=== PATIENT | female | born 1960 | race Caucasian/White ===

== ENCOUNTER 2018-06-28 14:03 | Inpatient (IN) ==
[~2018-06-28 14:03] MED LIST: INDOMETHACIN 25 MG CAPSULE PO ONE; NITROGLYCERIN 0.6 MG/HR PATCH TD ONE
[2018-06-28] MEDS ORDERED: IOPAMIDOL 100 ML BOTTLE IV ONE (14:04)
[2018-06-28] MEDS ORDERED: GENTAMICIN SULFATE 80 MG/2 ML VIAL IR ONE (16:00)
[2018-06-28] MEDS: MIDAZOLAM 2 MG/2 ML VIAL IV ONE ×2 (16:02→17:13)
[2018-06-28] MEDS: PROPOFOL 200 MG/20 ML VIAL IV ONE ×2 (16:02→17:13)
[2018-06-28] MEDS ORDERED: ONDANSETRON 4 MG/2 ML VIAL IV PRN (17:11)
[2018-06-28] MEDS: PROPOFOL 40 ML IV ONE ×2 (17:13→17:31)
[2018-06-28] MEDS: PROPOFOL 0 ML IV ONE ×2 (17:13→17:31)
[2018-06-28] MEDS: 0.9 % SODIUM CHLORIDE 1,000 ML IV SCH ×2 (17:15→22:02)
[2018-06-28] MEDS: HYDROmorphone 2 MG/ML VIAL IV PRN ×2 (17:37→22:22)
[2018-06-28] MEDS: diphenhydrAMINE 50 MG/ML VIAL IV PRN ×2 (18:07→22:42)
--- NOTE | 2018-06-29 03:44 | XRay Report ---
CLINICAL INFORMATION: post ERCP COMPARISON: 08/07/2016 FINDINGS: Films taken in lordotic positioning and right rotation with suboptimal inspiratory result accentuates the heart size which is normal. Moderate pneumoperitoneum and mild pneumomediastinum is appreciated with air dissecting into the neck soft tissues. Mild bibasilar airspace noted either atelectasis or developing aspiration. No effusion. IMPRESSION: Moderate pneumoperitoneum with mild pneumomediastinum and subcutaneous emphysema in the neck region. Findings compatible with GI tract perforation. Mild bibasilar airspace disease either atelectasis or minor aspiration Interpreted and Authenticated by: Darian Nielson 06/29/18
[2018-06-29] MEDS ORDERED: LEVOFLOXACIN 500 MG/100 ML BAG IV ONE (03:52)
[2018-06-29] MEDS ORDERED: LEVOFLOXACIN 500 MG/100 ML BAG IV SCH (04:00)
[2018-06-29] MEDS ORDERED: diphenhydrAMINE 50 MG/ML VIAL IV PRN ×2 (04:01→12:22)
[2018-06-29] MEDS: 0.9 % SODIUM CHLORIDE 1,000 ML IV SCH ×2 (05:30→15:47)
[2018-06-29 06:39] LABS: Basophils # (Auto) 0 K/mcL (0.0-0.3); Basophils % (Auto) 0.2 % (0.0-2.0); Eosinophils # (Auto) 0 K/mcL (0.0-0.7); Eosinophils % (Auto) 0.5 % (0.0-7.0); Granulocytes % (Auto) 77.9 % (38.0-78.0); Lymphocytes # (Auto) 1.4 K/mcL (1.5-4.8); Lymphocytes % (Auto) 16.5 % (15.5-49.0); Mean Cell Volume 67.1 fL (80.0-100.0); Mean Corpuscular HGB Conc 31.1 g/dL (31.0-36.0); Monocytes # (Auto) 0.4 K/mcL (0.1-0.9); Monocytes % (Auto) 4.9 % (1.0-12.0); Platelet Count 278 K/mcL (140-440); RBC 4.75 M/mcL (4.00-5.20); Red Cell Distribution Width 15.1 % (11.5-14.5)
[2018-06-29 06:56] LABS: ALT/SGPT 17 U/l (0-40); Albumin 3.5 gm/dL (3.2-5.2); Albumin/Globulin Ratio 1.2 (1.0-2.3); Alkaline Phosphatase 54 U/L (39-117); Amylase 75 U/L (28-100); Blood Urea Nitrogen 9 mg/dl (6-20)
[2018-06-29] MEDS: HYDROmorphone 2 MG/ML VIAL IV PRN ×2 (11:23→12:21)
--- NOTE | 2018-06-29 12:04 | Cat Scan Report ---
CLINICAL INFORMATION: Abdominal pain status post papillotomy biliary pancreatic stent placement COMPARISON: Preprocedure abdomen and pelvic CT 06/10/2018 TECHNIQUE: 80 cc of Isovue-300 were injected intravenously, and 60 seconds later, 0.625 mm helical slices were obtained from the mid heart through the subtrochanteric regions. Following reconstruction, 2.5 mm sagittal, coronal and axial reformatted images were processed and reviewed at bone, lung and soft tissue windows. Five minutes later, 0.625 mm helical slices were obtained from the mid heart through the kidneys and viewed at soft tissue windows.The exam was performed using radiation dose optimization techniques including, but not limited to, automated exposure control, adjustment of the mA and/or kV according to patient size and use of iterative reconstruction technique. FINDINGS: Lung bases show a small left pneumothorax - less than 15%. There is mild pneumomediastinum. Moderate patchy infiltrate in both posterior lower lobes likely represents aspiration. Small bilateral pleural effusions are new. Images through the abdomen show the gallbladder is surgically absent. The liver, adrenal glands, spleen, pancreas and aorta including aortic branches are normal in size configuration and attenuation without focal lesion. Tiny nonobstructing stones in calyces of both kidneys seen as before. No other renal abnormality Common bile duct stent extends from the common hepatic duct through the ampullary region with the tip in the descending duodenum. Pancreatic stent is properly positioned within Wirsungs' pancreatic duct. Both ducts are normal caliber: The common bile duct is now only 5 mm and the pancreatic duct is 2 mm. Small amount of gas within the common bile duct lumen is expected. A large amount of extraperitoneal gas is appreciated with predominant concentration in the retroperitoneal region particularly in the periduodenal region adjacent to the descending and transverse duodenum. The exact site of perforation cannot be identified with certainty, but is likely near the ampullary region. Moderate gas is seen within both anterior pararenal spaces, peripancreatic and extraperitoneal hepatic space with lesser amounts of extraperitoneal gas descending into the false pelvic region. This only a small amount of intraperitoneal gas appreciated Pelvic images show uterus is anteflexed and normal in size 7.8 x 4 cm. Urinary bladder is unremarkable. The region of the ovaries is normal. Bone windows show no osseous abnormality IMPRESSION: 1. Large amount of extraperitoneal gas in the upper abdomen most heavily concentrated in the descending and transverse periduodenal region. Site of perforation is not identified with certainty, but is likely near the ampulla. There is also superior extension into the chest resulting in moderate pneumomediastinum and small left pneumothorax less than 15% 2. The biliary and pancreatic duct stents are properly positioned. Both common bile and pancreatic ducts have returned to normal caliber 3. Tiny nonobstructing stones both kidneys as previously seen 4. Moderate bibasilar infiltrates - suspect aspiration. Small bilateral pleural effusions Interpreted and Authenticated by: Darian Nielson 06/29/18
[2018-06-29] MEDS: LORazepam 1 MG TABLET SL PRN ×2 (12:07)
[2018-06-29] MEDS ORDERED: ONDANSETRON 4 MG/2 ML VIAL IV PRN (12:22)
[2018-06-29] MEDS ORDERED: LORazepam 1 MG TABLET SL PRN (12:22)
[2018-06-29] MEDS ORDERED: DEXTROSE 50% 50 ML VIAL IV PRN (12:39)
[2018-06-29] MEDS ORDERED: ACETAMINOPHEN 650 MG/65 ML BOTTLE IV PRN (12:57)
[2018-06-29] MEDS: metroNIDAZOLE 500 MG/100 ML BAG IV SCH ×2 (13:11→21:35)
--- NOTE | 2018-06-29 13:15 | Internal Med History&Physical ---
Medical - H&P: [facility] Patient information: Note initiated : 06/29/18 at 1:12 pm Service Date, if different from initiated Date: [] Patient: Hui Louis a 57 y/o F admitted on 06/29/18 for ERCP. Chief Complaint: [] History of present illness: Ms. Louis is a 57 year old F with h/o DM, h/o ERCP in the past, admitted to the hospital s/p ERCP. The patient had abdominal pain, dialated cbd, and needed repeat ERCP, she underwent the procedure and unfortunately developed perforation of the bowel postprocedure. The patient has significant abdominal pain throughout her abdomen, also has some chest congestion. The patient is being admitted to the hospital for management of pain as well as bowel perforation. GI is following this patient. Medicine has been asked to help with medical management of chronic medical conditions as well as pain management. On my evaluation patient was quite drowsy, had received Benadryl as well as Dilaudid for pain management along with Ativan. Patient besides abdominal pain denies any other acute complaints. I reviewed her allergy list it looks like patient is allergic to all pain medications she reports that she has itching with all pain medications. On her allergy list she is also allergic to Tylenol, [as part of Vicodin] She denies any allergies suggestive of anaphylaxis, angioedema or respiratory distress. Itching is her only allergic symptoms. ROS unobtainable: due to mental status (drowsy post medications) Review of systems: . Medical - H&P: [facility] Medical history: Medical History (Last Reviewed 06/21/18 @ 10:55 by Mindy Fine RN) Rash and nonspecific skin eruption (Acute) Encounter for long-term current use of high risk medication (Acute) Nonulcer dyspepsia (Chronic) Right ankle pain (Acute) SANTOS (obstructive sleep apnea) (Chronic) Irritable bowel syndrome with diarrhea (Chronic) Morphea (Acute) Osteopenia (Chronic) Sleep apnea (Chronic) Chest pain (Chronic) Left breast lump (Acute) Tendonitis, Achilles, left (Acute) Muscle spasm (Acute) Neck pain (Chronic) Elevated liver enzymes (Chronic) Fatty liver (Acute) Abdominal pain (Chronic) H/O: hysterectomy (Chronic) OP (osteoporosis) (Chronic) Migraines (Chronic) Hepatitis (Chronic) Insomnia (Chronic) Hypercholesteremia (Chronic) Hypertension, essential (Chronic) DMII (diabetes mellitus, type 2) (Chronic) Depression (Chronic) Fatigue (Chronic) Breast cancer (Chronic) Chronic joint pain (Chronic) Anemia (Resolved) Foot pain, bilateral (Resolved) Gallbladder problem (Resolved) Knee pain (Resolved) Liver disease (Resolved) Pancreatitis (Resolved) Rash and nonspecific skin eruption (Resolved) Stomach ulcer (Resolved) Suicidal thoughts (Resolved) Toe pain (Resolved) Upper respiratory infection (Resolved) Urinary tract infection (Resolved) Arthritis (Inactive) Bowel disease (Inactive) Gout (Inactive) Kidney stone on left side (Inactive) Lung disorder (Inactive) OA (osteoarthritis) (Inactive) Surgical history: Past Surgical History (Last Reviewed 06/21/18 @ 10:55 by Mindy Fine RN) H/O neck surgery (Chronic) History of common bile duct surgery (Chronic) H/O breast surgery (Chronic 02/13/05) Hx of cholecystectomy (Chronic) H/O colonoscopy (Chronic 11/08/13) History of breast biopsy (Chronic 06/01/16) Pertinent family history: Family History (Last Reviewed 06/21/18 @ 10:55 by Mindy Fine RN) Mother Arthritis Diabetes mellitus Sister Arthritis Malignant neoplasm Grandmother-paternal Arthritis Grandfather-paternal Arthritis Myocardial Infarction Father Myocardial Infarction Medical - H&P: Meds Home Medications Medication Instructions Recorded Confirmed Type atorvastatin 40 mg tablet 40 mg PO .Q pm #30 tab 05/06/17 06/28/18 Rx cholecalciferol (vitamin D3) 5,000 5,000 unit PO QDAY #90 cap 05/06/17 06/28/18 Rx unit capsule hydrochlorothiazide 25 mg tablet 25 mg PO QDAY #30 tab 05/06/17 06/28/18 Rx metformin ER 1,000 mg 2,000 mg PO .Q pm #60 tab 05/06/17 06/28/18 Rx tablet,extended release 24hr aspirin 81 mg tablet,delayed 81 mg PO QDAY #90 tab 05/10/17 06/28/18 Rx release melatonin 5 mg capsule 5 mg PO QHS 06/15/17 06/28/18 History calcium carbonate 500 mg calcium 500 mg PO BID #60 tab 02/15/18 06/28/18 Rx (1,250 mg) tablet telmisartan 40 mg tablet 80 mg PO QDAY #60 tab 04/21/18 06/28/18 Rx sitagliptin 100 mg tablet 100 mg PO QDAY #30 tab 04/26/18 06/28/18 Rx CPAP #1 ea 04/28/18 06/14/18 Rx CPAP machine #1 ea 05/03/18 06/14/18 Rx Blood-Glucose Meter [Accu-Chek 0 appful .ROUTE .MEDSUPPLY 05/17/18 06/28/18 History Yesy Connect] glimepiride 4 mg tablet 8 mg PO QAM #60 tab 05/19/18 06/28/18 Rx blood sugar diagnostic strips 0 strip .ROUTE .MEDSUPPLY #50 each 05/31/18 06/28/18 Rx MDD 3 times daily lancets See Dose Instructions .ROUTE 05/31/18 06/14/18 Rx .MEDSUPPLY #50 each Allergies Allergy/AdvReac Type Severity Reaction Status Date / Time acetaminophen [From Vicodin] Allergy Unknown Unknown Verified 06/28/18 14:28 hydrocodone Allergy Unknown Unknown Verified 06/28/18 14:28 morphine Allergy Unknown Unknown Verified 06/28/18 14:28 pain medication AdvReac Mild Itching Uncoded 06/21/18 10:53 Medical - H&P: Exam - Constitutional Vitals: Temp Pulse Resp BP Pulse Ox 97.6 F 68 20 124/74 100 06/29/18 07:52 06/29/18 07:52 06/29/18 07:52 06/29/18 07:52 06/29/18 07:52 Exam: GENERAL: The patient is a well-developed, well-nourished in no apparent distress. Is drowsy and oriented x1 . VITAL SIGNS: Reviewed and as noted elsewhere. HEENT: Head is normocephalic and atraumatic. Extraocular muscles are intact. Pupils are equal, round, and reactive to light. Nares appeared normal. Mouth appears any without lesions. Mucous membranes are dry. NECK: Normal to inspection, Supple, No lymphadenopathy or thyromegaly. LUNGS: Air entry equal on both sides, no wheezing, crackles or rhonchi noted. No accessory muscles of respiration HEART: Regular rate and rhythm normal, S1 and S2 heard, no Gallop, S3 or Rub Noted, No Gross murmur heard. ABDOMEN: Soft, diffuse tenderness present, and nondistended. Positive bowel sary nds. No hepatosplenomegaly was noted. EXTREMITIES: No cyanosis, clubbing, rash, lesions, trace edema NEUROLOGIC: Cranial nerves II through XII are grossly intact. Motor and Sensory System Grossly Intact PSYCHIATRIC: drowsy SKIN: No ulceration or wounds noted, No jaundice, No rash noted. Medical - H&P: Reslt - Labs CBC & Chem 7: 06/29/18 04:55 06/29/18 04:55 Labs: Short CBC 06/29/18 Range/Units 04:55 WBC 8.6 (4.5-11.0) K/mcL Hgb 9.9 L (12.0-15.0) g/dL Hct 31.9 L (36.0-48.0) % Plt Count 278 (140-440) K/mcL BMP 06/29/18 04:55 Sodium 137 Potassium 4.2 Chloride 104 Carbon Dioxide 22 BUN 9 Creatinine 0.6 Glucose 210 H Calcium 8.3 L Liver Function 06/29/18 Range/Units 04:55 Total Bilirubin 0.6 (0.0-1.0) mg/dL AST 13 (0-37) U/l ALT 17 (0-40) U/l Alkaline Phosphatase 54 (39-117) U/L Albumin 3.5 (3.2-5.2) gm/dL Medical - H&P: A/P - Narrative A/P Narrative: A/P Bowel perforation -retroperitoneal perforation likely, s/p ERCP, patient on levofloxacin and flagyl, conservative management as per GI. Aspiration Pneumonia - on levofloxacin and flagyl, ABdominal pain -Difficult to manage, jagruti in light of morphine allergy(itching), start [facility] tylen[facility], monitor closely, I doubt that the patient has true tylenol allergy, will be in a monitored setting during administration of this medication, already has recieved benadryl. I will stop dilaudid, and ativan for now, start on IV fentanyl, hopefully given that this is a synthetic compound she will not develop allergy, in which case we can use a fentanyl cable tool driller if needed. Consider NSAID/ celebrex mehreen once able to tolerate PO NPO status for now DM -NPO, hold oral meds, ssi insulin for glucose control, IVF HTN/HLD resume home meds once able DVT SCD Full code Will monitor on telemetery given need for frequent high dose of pain medicatins, and high risk of deterioration. 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
[2018-06-29] MEDS ORDERED: LEVOFLOXACIN 250 MG/50 ML BAG IV ONE (14:00)
[2018-06-29] MEDS: fentaNYL 100 MCG/2 ML VIAL IV PRN ×3 (15:38→22:16)
[2018-06-29] MEDS: 0.9 % SODIUM CHLORIDE 10 ML SYRINGE IV SCH ×2 (15:39→21:54)
[2018-06-29] MEDS ORDERED: diphenhydrAMINE 50 MG/ML VIAL IV ONE (15:39)
[2018-06-29] MEDS ORDERED: methylPREDNISolone SOD SUCC 40 MG/ML VIAL IV ONE (15:40)
[2018-06-29] MEDS ORDERED: LORazepam 2 MG/ML VIAL IV PRN (15:42)
[2018-06-29] MEDS: ACETAMINOPHEN 650 MG/65 ML BOTTLE IV SCH ×2 (15:52→21:53)
[2018-06-29] MEDS: ONDANSETRON 4 MG/2 ML VIAL IV PRN (16:43)
[2018-06-29] MEDS: INSULIN LISPRO 1 UNIT/0.01 ML UNIT SQ SCH (17:49)
[2018-06-29] MEDS: ATORVASTATIN 20 MG TABLET PO SCH (21:35)
[2018-06-29] MEDS: MELATONIN 3 MG TABLET PO SCH (21:35)
[2018-06-29] MEDS: diphenhydrAMINE 50 MG/ML VIAL IV PRN (22:09)
[2018-06-30] MEDS: INSULIN LISPRO 1 UNIT/0.01 ML UNIT SQ SCH ×4 (00:17→17:09)
[2018-06-30] MEDS: 0.9 % SODIUM CHLORIDE 1,000 ML IV SCH ×5 (01:27→19:07)
[2018-06-30] MEDS: ONDANSETRON 4 MG/2 ML VIAL IV PRN ×4 (04:00→20:22)
[2018-06-30] MEDS: ACETAMINOPHEN 650 MG/65 ML BOTTLE IV SCH ×4 (04:01→23:39)
[2018-06-30] MEDS: 0.9 % SODIUM CHLORIDE 10 ML SYRINGE IV SCH ×3 (05:29→23:42)
[2018-06-30] MEDS: metroNIDAZOLE 500 MG/100 ML BAG IV SCH ×3 (05:29→23:33)
[2018-06-30 07:07] LABS: Basophils # (Auto) 0 K/mcL (0.0-0.3); Basophils % (Auto) 0.4 % (0.0-2.0); Eosinophils # (Auto) 0 K/mcL (0.0-0.7); Eosinophils % (Auto) 0 % (0.0-7.0); Granulocytes % (Auto) 82.3 % (38.0-78.0); Lymphocytes % (Auto) 14.4 % (15.5-49.0); Mean Cell Volume 68.6 fL (80.0-100.0); Mean Corpuscular HGB Conc 30.7 g/dL (31.0-36.0); Monocytes # (Auto) 0.2 K/mcL (0.1-0.9); Monocytes % (Auto) 2.9 % (1.0-12.0); Platelet Count 276 K/mcL (140-440)
[2018-06-30 07:43] LABS: ALT/SGPT 15 U/l (0-40); Albumin 3.4 gm/dL (3.2-5.2); Albumin/Globulin Ratio 1.1 (1.0-2.3); Alkaline Phosphatase 59 U/L (39-117); Bilirubin,Direct < 0.2 mg/dL (0.0-0.3); Blood Urea Nitrogen 6 mg/dl (6-20); Gamma Glutamyl Transpeptidase 141 U/L (5-36); Uric Acid 3.8 mg/dL (2.5-8.0)
--- NOTE | 2018-06-30 07:59 | XRay Report ---
CLINICAL INFORMATION: hypoxia COMPARISON: 06/28/2018 FINDINGS: NG tube tip overlies the gastric body. Heart size is normal - it is accentuated by rightward rotation, respiratory results and portable technique. Mediastinum and pulmonary vessels are unremarkable. Pneumomediastinum and subcutaneous emphysema in the lower neck have diminished since yesterday's study. The known extraperitoneal gas in the upper abdomen has also decreased considerably. Small patchy left basilar infiltrate as worsened. Minor right basilar infiltrate also worsening slightly. No definite effusions IMPRESSION: 1. Marked improvement in extraperitoneal gas in the upper abdomen, pneumomediastinum and subcutaneous air in the left lower neck since yesterday. Only minimal residual. 2. NG tube tip overlies the gastric body. 3. Small patchy left and minimal minimal patchy right basilar infiltrates worsening slightly Interpreted and Authenticated by: Darian Nielson 06/30/18
[2018-06-30] MEDS: OLMESARTAN MEDOXOMIL 20 MG TABLET PO SCH (08:52)
[2018-06-30] MEDS: ASPIRIN 81 MG TAB.CHEW PO SCH (08:53)
[2018-06-30] MEDS ORDERED: LEVOFLOXACIN 750 MG/150 ML BAG IV SCH (09:00)
[2018-06-30] MEDS ORDERED: PANTOPRAZOLE 40 MG VIAL IV ONE (09:20)
[2018-06-30] MEDS: PANTOPRAZOLE 80 MG in 0.9 % SODIUM CHLORIDE 100 ML IV SCH ×2 (09:56→19:26)
[2018-06-30] MEDS: fentaNYL 100 MCG/2 ML VIAL IV PRN ×3 (10:39→20:22)
[2018-06-30] MEDS: diphenhydrAMINE 50 MG/ML VIAL IV PRN ×3 (10:40→20:21)
--- NOTE | 2018-06-30 12:26 | Internal Med Progress Note ---
Medical - PN: Subj Patient information: Note initiated : 06/30/18 at 12:23 pm Service Date, if different from initiated Date: [] Patient: Hui Louis a 57 y/o F admitted on 06/29/18 for ERCP. Chief Complaint: [] Interval history: Ms. Louis is a 57 year old F with h/o DM, h/o ERCP in the past, admitted to the hospital s/p ERCP. The patient had abdominal pain, dialated cbd, and needed repeat ERCP, she underwent the procedure and unfortunately developed perforation of the bowel postprocedure. The patient has significant abdominal pain throughout her abdomen, also has some chest congestion. The patient is being a dmitted to the hospital for management of pain as well as bowel perforation. GI is following this patient. Medicine has been asked to help with medical management of chronic medical conditions as well as pain management. On my evaluation patient was quite drowsy, had received Benadryl as well as Dilaudid for pain management along with Ativan. Patient besides abdominal pain denies any other acute complaints. I reviewed her allergy list it looks like patient is allergic to all pain medications she reports that she has itching with all pain medications. On her allergy list she is also allergic to Tylenol, [as part of Vicodin] She denies any allergies suggestive of anaphylaxis, angioedema or respiratory distress. Itching is her only allergic symptoms. 06/30 Pt seen examined, no acute issues,k pain control is better compared to yesterday itching symptoms better with fentanyl than other opiates analogues Pt X ray shows bibasilar infiltrates/atelectasiss pt is no antibiotics NG tube has some bloody suction, IV PPI ongoing as per GI GI team is predminanty driving management in this patient Pertinent ROS: Denies headache, dizziness Denies chest pain, palpitations Denies cough or shortness of breath abdominal pain, and nausea present, . - Constitutional Vitals: Vital Signs Temp Pulse Resp BP Pulse Ox 97.7 F 79 20 156/86 95 06/30/18 07:45 06/30/18 07:45 06/30/18 07:45 06/30/18 07:45 06/30/18 07:45 Period Temp Pulse Resp BP Sys/Pinzon Pulse Ox Last 24 Hr 97.2 F-98.1 F 69-79 16-20 134-156/70-86 89-100 Intake and Output 06/29/18 06/30/18 06/30/18 21:59 05:59 13:59 Intake Total 1215 1230 1100 Output Total 925 Balance 3561 102 0935 Weight 178 lb Intake & Output: Intake & Output 06/29/18 06/30/18 06/30/18 21:59 05:59 13:59 Intake Total 1215 1230 1100 Output Total 925 Balance 4432 567 3501 Weight 178 lb Intake: IV 1215 1230 1100 Sodium Chloride 0.9% 1,000 ml @ 1000 1000 150 mls/hr IV .Q6H40M [facility] Rx#: [id number] Output: Gastric Drainage 475 Right Nare 475 Void Amount 450 Other: Urine Color Bright Yellow Urine Odor Normal # Voids 1 Exam: Constitutional; Afebrile, cooperative, alert, not in distress. Eyes- No icterus, , No periorbital swelling Ears- Ext ear normal, hearing normal to conversation. Neck- Midline trachea, supple Respiratory system: Air Entry equal on both sides, No crackles or wheezing, no rhonchi. ant exam only. CVS- Rate rhythm regular, S1,S2 heard, no gallop, no rub. Abdomen- generalized tenderness, more in sukhwinder epigastric regeion, hypoactive bowel tones noted. BOOM BOSS- AOOx3, moving all extremities, no gross focal deficit noted. Medical - PN: Obj Da - Labs CBC & Chem 7: 06/30/18 03:40 06/30/18 03:40 Labs: Abnormal Lab Results 06/30/18 06/30/18 06/29/18 03:40 03:40 04:55 Hgb 10.6 L Hct 34.3 L MCV 68.6 L MCH 21.1 L MCHC 30.7 L RDW 16.0 H Gran % 82.3 H Lymph % (Auto) 14.4 L Lymph # (Auto) 1.0 L Glucose 151 H 210 H Calcium 8.0 L 8.3 L Phosphorus 2.6 L GGT 141 H 06/29/18 04:55 Hgb 9.9 L Hct 31.9 L MCV 67.1 L MCH 20.9 L MCHC RDW 15.1 H Gran % Lymph % (Auto) Lymph # (Auto) 1.4 L Glucose Calcium Phosphorus GGT Meds: Medications Aspirin (Aspirin) 81 mg PO DAILY [facility] Last Admin: 06/30/18 08:53 Dose: Not Given Documented by: Atorvastatin Calcium (Lipitor) 40 mg PO HS MEHREEN Last Admin: 06/29/18 21:35 Dose: Not Given Documented by: Dextrose (Dextrose 50%) 0 ml IV UD PRN PRN Reason: Hypoglycemia Diagnostic Test (Pha) (Accu-Chek) 1 each FS Q6 MEHREEN Last Admin: 06/30/18 05:30 Dose: 1 each Documented by: Diphenhydramine HCl (Benadryl) 50 mg IV Q4HP PRN PRN Reason: Allergic Symptoms Last Admin: 06/30/18 10:40 Dose: 50 mg Documented by: Fentanyl (Sublimaze) 25 mcg IV Q1HP PRN PRN Reason: PAIN LEVEL > 6 Last Admin: 06/30/18 10:39 Dose: 25 mcg Documented by: Sodium Chloride (Sodium Chloride 0.9%) 1,000 mls @ 150 mls/hr IV .Q6H40M [facility] Last Admin: 06/30/18 08:52 Dose: 150 mls/hr Documented by: Acetaminophen (Ofirmev) 650 mg in 65 mls @ 130 mls/hr IV Q6H MEHREEN Last Admin: 06/30/18 10:37 Dose: 130 mls/hr Documented by: Pantoprazole Sodium 80 mg/ (Sodium Chloride) 100 mls @ 10 mls/hr IV Q10H MEHREEN Last Admin: 06/30/18 09:56 Dose: 8 mg/hr, 10 mls/hr Documented by: Metronidazole (Flagyl) 500 mg in 100 mls @ 100 mls/hr IV Q8H MEHREEN; Protocol Levofloxacin (Levaquin) 750 mg in 150 mls @ 100 mls/hr IV Q24H MEHREEN; Protocol Insulin Human Lispro (Humalog) 0 unit SQ Q6 MEHREEN; Protocol Last Admin: 06/30/18 05:31 Dose: Not Given Documented by: Lorazepam (Ativan) 0.5 mg IV Q2HP PRN PRN Reason: ANXIETY/SEDATION Melatonin (Melatonin 3mg Tablet) 3 mg PO HS [facility] Last Admin: 06/29/18 21:35 Dose: Not Given Documented by: Olmesartan (Benicar) 40 mg PO DAILY [facility] Last Admin: 06/30/18 08:52 Dose: Not Given Documented by: Ondansetron HCl (Zofran) 4 mg IV Q4HP PRN PRN Reason: Nausea And Vomiting Last Admin: 06/30/18 07:56 Dose: 4 mg Documented by: Sodium Chloride (Saline Flush) 10 ml IV Q8 [facility]RE[facility] Last Admin: 06/30/18 05:29 Dose: 10 ml Documented by: Medical - PN: A/P - Time Spent With Patient Total time spent is greater than 50% in coordination of care (as documented) at patient's floor/unit and/or counseling patient: - Narrative A/P Narrative: A/P Bowel perforation -retroperitoneal perforation likely, s/p ERCP, patient is being followed by Dr Berry in the hospital, management is driven by him. Aspiration Pneumoniits - on levofloxacin and flagyl, -strongly encouraged incentive spirometery. ABdominal pain -NG tube in place -IV fentanyl as needed, with good response, -mehreen tylenol -if patient does not improve, or worsens, will consider starting on ketamine ggt. DM -NPO, hold oral meds, ssi insulin for glucose control, IVF HTN/HLD resume home meds once able DVT SCD Full code Will continue monitor on telemetery given need for frequent high dose of pain medications, and high risk of deterioration. Medical - PN: Qual - VTE Deep Vein Thrombosis/Pulmonary Embolism Present on Admission: No
--- NOTE | 2018-06-30 13:40 | Internal Med Progress Note ---
Medical - PN: Subj Patient information: Note initiated : 06/30/18 at 1:37 pm Service Date, if different from initiated Date: [] Patient: Hui Louis a 57 y/o F admitted on 06/29/18 for ERCP. Chief Complaint: [retroperitoneal perforation following ERCP w/ papillotomy, pancreatic and biliary stent] Interval history: Ms. 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 Cannulation was difficult and accomplished only after pancreatic duct was placed. Papillotomy was performed and a biliary stent was also placed. Several hours after papillotomy, patient became short of breath and complained of abdominal pain and was discovered to have a retroperitoneal perforation. She developed ileus. NGT placed with bloody output of 475ml last night, 200ml this morning. She is on Protonix gtt. She continues to have nausea with dry heaves despite Zofran IV q 4 hours. Rates abdominal pain 7/10 despite f entanyl, but she is having less itching with fentanyl. She has not passed flatus, nor had a BM. Hgb improved to 10. Additional PMFSH (Level 3 Only): Diabetes, migraine, morphea, IBS, costochondritis, postcholecystectomy syndrome, HTN, sleep apnea - Constitutional Vitals: Vital Signs Temp Pulse Resp BP Pulse Ox 98.6 F 79 18 145/79 94 06/30/18 12:00 06/30/18 07:45 06/30/18 12:00 06/30/18 12:00 06/30/18 12:00 Period Temp Pulse Resp BP Sys/Pinzon Pulse Ox Last 24 Hr 97.2 F-98.6 F 69-79 16-20 134-156/70-86 89-100 Intake and Output 06/29/18 06/30/18 06/30/18 21:59 05:59 13:59 Intake Total 1215 1230 1165 Output Total 925 800 Balance 1215 305 365 Weight 178 lb 178 lb Patient Weight 07/01/18 05:59 Weight 178 lb Intake & Output: Intake & Output 06/29/18 06/30/18 06/30/18 21:59 05:59 13:59 Intake Total 1215 1230 1165 Output Total 925 800 Balance 1215 305 365 Weight 178 lb 178 lb Intake: IV 1215 1230 1165 Sodium Chloride 0.9% 1,000 ml @ 1000 1000 150 mls/hr IV .Q6H40M [facility] Rx#: [id number] Output: Gastric Drainage 475 Right Nare 475 Void Amount 450 800 Other: Urine Color Bright Yellow Urine Odor Normal # Voids 1 General appearance: average body habitus, cooperative, moderate distress - Head Head exam: Present: atraumatic, normal inspection, normocephalic - Neck Neck exam: Present: normal inspection Additional comments: crepitus decreased - Respiratory Respiratory exam: Present: normal respiratory exam - Cardiovascular Cardiovascular exam: Present: normal rate and rhythm - GI/Abdominal GI/Abdominal exam: Present: diminished bowel sounds, firm, tenderness. Absent: mass, organomegaly Additional comments: NG with dark brown/bloody output - Neurological Exam Neurological exam: Present: alert - Psychiatric Psychiatric exam: Present: anxious - Skin Skin exam: Present: dry, normal color, warm Medical - PN: Obj Da - Labs CBC & Chem 7: 06/30/18 03:40 06/30/18 03:40 Labs: Abnormal Lab Results 06/30/18 06/30/18 06/29/18 03:40 03:40 04:55 Hgb 10.6 L Hct 34.3 L MCV 68.6 L MCH 21.1 L MCHC 30.7 L RDW 16.0 H Gran % 82.3 H Lymph % (Auto) 14.4 L Lymph # (Auto) 1.0 L Glucose 151 H 210 H Calcium 8.0 L 8.3 L Phosphorus 2.6 L GGT 141 H 06/29/18 04:55 Hgb 9.9 L Hct 31.9 L MCV 67.1 L MCH 20.9 L MCHC RDW 15.1 H Gran % Lymph % (Auto) Lymph # (Auto) 1.4 L Glucose Calcium Phosphorus GGT Meds: Medications Aspirin (Aspirin) 81 mg PO DAILY [facility] Last Admin: 06/30/18 08:53 Dose: Not Given Documented by: Atorvastatin Calcium (Lipitor) 40 mg PO HS [facility] Last Admin: 06/29/18 21:35 Dose: Not Given Documented by: Dextrose (Dextrose 50%) 0 ml IV UD PRN PRN Reason: Hypoglycemia Diagnostic Test (Pha) (Accu-Chek) 1 each FS Q6 [facility] Last Admin: 06/30/18 13:27 Dose: 1 each Documented by: Diphenhydramine HCl (Benadryl) 50 mg IV Q4HP PRN PRN Reason: Allergic Symptoms Last Admin: 06/30/18 10:40 Dose: 50 mg Documented by: Fentanyl (Sublimaze) 25 mcg IV Q1HP PRN PRN Reason: PAIN LEVEL > 6 Last Admin: 06/30/18 10:39 Dose: 25 mcg Documented by: Sodium Chloride (Sodium Chloride 0.9%) 1,000 mls @ 150 mls/hr IV .Q6H40M [facility] Last Admin: 06/30/18 08:52 Dose: 150 mls/hr Documented by: Acetaminophen (Ofirmev) 650 mg in 65 mls @ 130 mls/hr IV Q6H [facility] Last Infusion: 06/30/18 13:24 Dose: Infused Documented by: Pantoprazole Sodium 80 mg/ (Sodium Chloride) 100 mls @ 10 mls/hr IV Q10H [facility] Last Admin: 06/30/18 09:56 Dose: 8 mg/hr, 10 mls/hr Documented by: Metronidazole (Flagyl) 500 mg in 100 mls @ 100 mls/hr IV Q8H [facility]; Protocol Last Admin: 06/30/18 13:27 Dose: 100 mls/hr Documented by: Levofloxacin (Levaquin) 750 mg in 150 mls @ 100 mls/hr IV Q24H [facility]; Protocol Insulin Human Lispro (Humalog) 0 unit SQ Q6 [facility]; Protocol Last Admin: 06/30/18 13:27 Dose: Not Given Documented by: Lorazepam (Ativan) 0.5 mg IV Q2HP PRN PRN Reason: ANXIETY/SEDATION Melatonin (Melatonin 3mg Tablet) 3 mg PO HS [facility] Last Admin: 06/29/18 21:35 Dose: Not Given Documented by: Olmesartan (Benicar) 40 mg PO DAILY [facility] Last Admin: 06/30/18 08:52 Dose: Not Given Documented by: Ondansetron HCl (Zofran) 4 mg IV Q4HP PRN PRN Reason: Nausea And Vomiting Last Admin: 06/30/18 07:56 Dose: 4 mg Documented by: Sodium Chloride (Saline Flush) 10 ml IV Q8 [facility] Last Admin: 06/30/18 13:28 Dose: Not Given Documented by: Medical - PN: A/P - Time Spent With Patient Total time spent is greater than 50% in coordination of care (as documented) at patient's floor/unit and/or counseling patient: 15 - 24 minutes (1) Small bowel perforation Status: Acute Assessment and plan: Hope to d/c NGT this evening once patient is able to pass flatus; we will reassess her this afternoon. Plan to repeat CT abdomen tomorrow AM. Will add phenergan for nausea. Current Visit: Yes Medical - PN: Qual - VTE Deep Vein Thrombosis/Pulmonary Embolism Present on Admission: No
[2018-06-30] MEDS ORDERED: METOCLOPRAMIDE 10 MG/2 ML VIAL IV PRN (13:50)
--- NOTE | 2018-06-30 17:00 | ERCP Procedure Note ---
ERCP Procedure Notes - Procedure Information Patient information: Note initiated : 06/30/18 at 4:55 pm Service Date: 06/28/18 Patient: Hui Louis 57 y/o F admitted on 06/29/18 for ERCP. Pre-op diagnosis general: Post cholecystectomy syndrome. Post-op diagnosis general: Papillary stenosis. Procedure: ERCP Procedure narrative: The procedures, alternatives and risks were discussed with the patient and the patient's questions were answered. Patient was advised of risks of bleeding, pancreatitis, perforation, and infection. With endoscopist-administered intravenous sedation, the Olympus side viewing operating duodenoscope was introduced into the esophagus and advanced to the second part of the duodenum without difficulty. The papilla was quite stenotic. A pancreatic stent was placed and, using a needle knife papillotome, a papillotomy was performed. The bile duct was dilated. There was no evidence of stone. A 10fr x 5cm stent was placed in the bile duct. The scope was withdrawn. Assessment: Papillary stenosis. She will require ERCP with stent removal in 3 weeks.
[2018-06-30] MEDS: ATORVASTATIN 20 MG TABLET PO SCH (21:08)
[2018-06-30] MEDS: MELATONIN 3 MG TABLET PO SCH (21:09)
[2018-07-01] MEDS: 0.9 % SODIUM CHLORIDE 1,000 ML IV SCH ×4 (00:26→17:56)
[2018-07-01] MEDS: diphenhydrAMINE 50 MG/ML VIAL IV PRN ×2 (00:31→04:24)
[2018-07-01] MEDS: ONDANSETRON 4 MG/2 ML VIAL IV PRN ×4 (00:32→11:34)
[2018-07-01] MEDS: fentaNYL 100 MCG/2 ML VIAL IV PRN ×5 (00:33→23:41)
[2018-07-01] MEDS: ACETAMINOPHEN 650 MG/65 ML BOTTLE IV SCH ×4 (04:22→21:40)
[2018-07-01] MEDS: metroNIDAZOLE 500 MG/100 ML BAG IV SCH ×3 (05:45→22:15)
[2018-07-01] MEDS: PANTOPRAZOLE 80 MG in 0.9 % SODIUM CHLORIDE 100 ML IV SCH ×2 (05:47→16:18)
[2018-07-01] MEDS: 0.9 % SODIUM CHLORIDE 10 ML SYRINGE IV SCH ×3 (05:49→21:09)
[2018-07-01] MEDS: 0.9 % SODIUM CHLORIDE 250 ML IV SCH ×3 (05:53→17:29)
[2018-07-01] MEDS: INSULIN LISPRO 1 UNIT/0.01 ML UNIT SQ SCH ×4 (05:59→16:19)
[2018-07-01 07:03] LABS: Basophils # (Auto) 0 K/mcL (0.0-0.3); Basophils % (Auto) 0.3 % (0.0-2.0); Eosinophils # (Auto) 0.1 K/mcL (0.0-0.7); Eosinophils % (Auto) 0.9 % (0.0-7.0); Granulocytes % (Auto) 76.5 % (38.0-78.0); Lymphocytes # (Auto) 1.7 K/mcL (1.5-4.8); Lymphocytes % (Auto) 17.9 % (15.5-49.0); Mean Cell Volume 68.6 fL (80.0-100.0); Mean Corpuscular HGB Conc 30.4 g/dL (31.0-36.0); Monocytes # (Auto) 0.4 K/mcL (0.1-0.9); Monocytes % (Auto) 4.4 % (1.0-12.0); Platelet Count 293 K/mcL (140-440); RBC 5.53 M/mcL (4.00-5.20); Red Cell Distribution Width 16.3 % (11.5-14.5)
--- NOTE | 2018-07-01 07:03 | Internal Med Progress Note ---
Medical - PN: Subj Patient information: Note initiated : 07/01/18 at 7:01 am Service Date, if different from initiated Date: [] Patient: Hui Louis a 57 y/o F admitted on 06/29/18 for ERCP. Chief Complaint: [] Interval history: Ms. Louis is a 57 year old F with h/o DM, h/o ERCP in the past, admitted to the hospital s/p ERCP. The patient had abdominal pain, dialated cbd, and needed repeat ERCP, she underwent the procedure and unfortunately developed perforation of the bowel postprocedure. The patient has significant abdominal pain throughout her abdomen, also has some chest congestion. The patient is being ad mitted to the hospital for management of pain as well as bowel perforation. GI is following this patient. Medicine has been asked to help with medical management of chronic medical conditions as well as pain management. On my evaluation patient was quite drowsy, had received Benadryl as well as D ilaudid for pain management along with Ativan. Patient besides abdominal pain denies any other acute complaints. I reviewed her allergy list it looks like patient is allergic to all pain medications she reports that she has itching with all pain medications. On her allergy list she is also allergic to Tylenol, [as part of Vicodin] She denies any allergies suggestive of anaphylaxis, angioedema or respiratory distress. Itching is her only allergic symptoms. 06/30 Pt seen examined, no acute issues,k pain control is better compared to yesterday itching symptoms better with fentanyl than other opiates analogues Pt X ray shows bibasilar infiltrates/atelectasiss pt is no antibiotics NG tube has some bloody suction, IV PPI ongoing as per GI GI team is predminanty driving management in this patient 07/01 patient seen examined, no acute issues, still has abodminal pain, nausea better no bowel movements, did not pass gas on IV ppi ggt as per GI Plan for CT today as per GI Pertinent ROS: Denies headache, dizziness Denies chest pain, palpitations Denies cough or shortness of breath abdominal pain present, nausea improving, NG In place . - Constitutional Vitals: Vital Signs Temp Pulse Resp BP Pulse Ox 97.7 F 77 16 156/91 92 07/01/18 04:00 06/30/18 19:35 07/01/18 04:00 07/01/18 04:00 07/01/18 04:00 Period Temp Pulse Resp BP Sys/Pinzon Pulse Ox Last 24 Hr 97.7 F-99.0 F 77-79 16-20 145-169/79-94 91-97 Intake and Output 06/30/18 07/01/18 07/01/18 21:59 05:59 13:59 Intake Total 1260 1330 Output Total 1700 2950 Balance -440 -1620 Weight 176 lb Intake & Output: Intake & Output 06/30/18 07/01/18 07/01/18 21:59 05:59 13:59 Intake Total 1260 1330 Output Total 1700 2950 Balance -440 -1620 Weight 176 lb Intake: IV 1260 1330 Sodium Chloride 0.9% 1,000 ml @ 1000 1000 150 mls/hr IV .Q6H40M [facility] Rx#: [id number] Protonix 80 mg In Sodium 95 100 Chloride 0.9% 100 ml @ 8 MG/HR 10 mls/hr IV Q10H [facility] Rx#: [id number] Oral 0 Output: Gastric Drainage 150 Right Nare 150 Void Amount 1700 2800 Other: Urine Appearance Sediment Clear Urine Color Light Izzy Pale Urine Odor Strong Normal # Bowel Movements 0 Exam: Constitutional; Afebrile, cooperative, alert, not in distress. Eyes- No icterus, , No periorbital swelling Ears- Ext ear normal, hearing normal to conversation. Neck- Midline trachea, supple Respiratory system: Air Entry equal on both sides, No crackles or wheezing, no rhonchi. CVS- Rate rhythm regular, S1,S2 heard, no gallop, no rub. Abdomen- Tender abdomen all throughout, absent bowel tones, [employer]- AOOx3, moving all extremities, no gross focal deficit noted. Medical - PN: Obj Da - Labs CBC & Chem 7: 06/30/18 03:40 06/30/18 03:40 Labs: Abnormal Lab Results 06/30/18 06/30/18 06/29/18 03:40 03:40 04:55 Hgb 10.6 L Hct 34.3 L MCV 68.6 L MCH 21.1 L MCHC 30.7 L RDW 16.0 H Gran % 82.3 H Lymph % (Auto) 14.4 L Lymph # (Auto) 1.0 L Glucose 151 H 210 H Calcium 8.0 L 8.3 L Phosphorus 2.6 L GGT 141 H 06/29/18 04:55 Hgb 9.9 L Hct 31.9 L MCV 67.1 L MCH 20.9 L MCHC RDW 15.1 H Gran % Lymph % (Auto) Lymph # (Auto) 1.4 L Glucose Calcium Phosphorus GGT Meds: Medications Aspirin (Aspirin) 81 mg PO DAILY [facility] Last Admin: 06/30/18 08:53 Dose: Not Given Documented by: Atorvastatin Calcium (Lipitor) 40 mg PO HS [facility] Last Admin: 06/30/18 21:08 Dose: Not Given Documented by: Dextrose (Dextrose 50%) 0 ml IV UD PRN PRN Reason: Hypoglycemia Diagnostic Test (Pha) (Accu-Chek) 1 each FS Q6 [facility] Last Admin: 07/01/18 05:58 Dose: 1 each Documented by: Diphenhydramine HCl (Benadryl) 50 mg IV Q4HP PRN PRN Reason: Allergic Symptoms Last Admin: 07/01/18 04:24 Dose: 50 mg Documented by: Fentanyl (Sublimaze) 25 mcg IV Q1HP PRN PRN Reason: PAIN LEVEL > 6 Last Admin: 07/01/18 04:24 Dose: 25 mcg Documented by: Sodium Chloride (Sodium Chloride 0.9%) 1,000 mls @ 150 mls/hr IV .Q6H40M [facility] Last Admin: 07/01/18 03:31 Dose: 150 mls/hr Documented by: Acetaminophen (Ofirmev) 650 mg in 65 mls @ 130 mls/hr IV Q6H [facility] Last Infusion: 07/01/18 04:55 Dose: Infused Documented by: Pantoprazole Sodium 80 mg/ (Sodium Chloride) 100 mls @ 10 mls/hr IV Q10H [facility] Last Admin: 07/01/18 05:47 Dose: 8 mg/hr, 10 mls/hr Documented by: Metronidazole (Flagyl) 500 mg in 100 mls @ 100 mls/hr IV Q8H [facility]; Protocol Last Admin: 07/01/18 05:45 Dose: 100 mls/hr Documented by: Levofloxacin (Levaquin) 750 mg in 150 mls @ 100 mls/hr IV Q24H [facility]; Protocol Sodium Chloride (Sodium Chloride 0.9%) 250 mls @ 20 mls/hr IV .[id number] [facility] Last Admin: 07/01/18 05:53 Dose: 12 mls/hr Documented by: Insulin Human Lispro (Humalog) 0 unit SQ Q6 [facility]; Protocol Last Admin: 07/01/18 05:59 Dose: Not Given Documented by: Lorazepam (Ativan) 0.5 mg IV Q2HP PRN PRN Reason: ANXIETY/SEDATION Melatonin (Melatonin 3mg Tablet) 3 mg PO HS [facility] Last Admin: 06/30/18 21:09 Dose: Not Given Documented by: Metoclopramide HCl (Reglan) 10 mg IV Q6HP PRN PRN Reason: Nausea And Vomiting Olmesartan (Benicar) 40 mg PO DAILY [facility] Last Admin: 06/30/18 08:52 Dose: Not Given Documented by: Ondansetron HCl (Zofran) 4 mg IV Q4HP PRN PRN Reason: Nausea And Vomiting Last Admin: 07/01/18 04:24 Dose: 4 mg Documented by: Sodium Chloride (Saline Flush) 10 ml IV Q8 [facility] Last Admin: 07/01/18 05:49 Dose: Not Given Documented by: Medical - PN: A/P - Time Spent With Patient Total time spent is greater than 50% in coordination of care (as documented) at patient's floor/unit and/or counseling patient: - Narrative A/P Narrative: A/P Bowel perforation -retroperitoneal perforation likely, s/p ERCP, patient is being followed by Dr Berry in the hospital, management is driven by him. -CT planned today, Aspiration Pneumoniits - on levofloxacin and flagyl, -strongly encouraged incentive spirometer. ABdominal pain -NG tube in place -IV fentanyl as needed, with good response, benadryl with pain meds to help with itching. Got 3 doses of fentanyl overnight, will start on fentanyl patch, for skilled nursing relief. -[facility] [place] tylenol -if patient does not improve, or worsens, will consider starting on ketamine ggt. DM -NPO, hold oral meds, ssi insulin for glucose control, IVF HTN/HLD resume home meds once able DVT SCD Full code Will continue monitor on telemetery given need for frequent high dose of pain medications, and high risk of deterioration. Medical - PN: Qual - VTE Deep Vein Thrombosis/Pulmonary Embolism Present on Admission: No
[2018-07-01 07:31] LABS: ALT/SGPT 13 U/l (0-40); Albumin 3.2 gm/dL (3.2-5.2); Albumin/Globulin Ratio 0.9 (1.0-2.3); Alkaline Phosphatase 57 U/L (39-117); Bilirubin,Direct < 0.2 mg/dL (0.0-0.3); Blood Urea Nitrogen 4 mg/dl (6-20); Gamma Glutamyl Transpeptidase 133 U/L (5-36); Uric Acid 3.7 mg/dL (2.5-8.0)
[2018-07-01] MEDS ORDERED: IOPAMIDOL 100 ML BOTTLE IV ONE (08:01)
--- NOTE | 2018-07-01 08:57 | Cat Scan Report ---
CLINICAL INFORMATION: Follow-up duodenal perforation COMPARISON: Abdomen and pelvic CT two days prior 06/29/2018 TECHNIQUE: Following enteric contrast, 80 cc of Isovue-300 were injected intravenously, and 60 seconds later, 0.625 mm helical slices were obtained from the mid heart through the subtrochanteric regions. Following reconstruction, 2.5 mm sagittal, coronal and axial reformatted images were processed and reviewed at bone, lung and soft tissue windows. Five minutes later, 0.625 mm helical slices were obtained from the mid heart through the kidneys and viewed at soft tissue windows.The exam was performed using radiation dose optimization techniques including, but not limited to, automated exposure control, adjustment of the mA and/or kV according to patient size and use of iterative reconstruction technique. FINDINGS: The lung bases show complete atelectasis of the medial and posterior basilar segments of the right lower lobe with subsegmental atelectasis of the posterior left lower lobe with moderate patchy ground glass infiltrates throughout remainder of the left lower lobe and the lingula. Left pneumothorax has decreased - now less than 10%. The pneumomediastinum has nearly resolved. Tiny amount of extrapleural gas in the anterior right lung base as also decreased. Images through the abdomen show the liver, adrenal glands, spleen, pancreas and aorta, including aortic branches, to be normal in size and figuration attenuation without focal lesion. Tiny nonobstructing stones in both kidneys seen - as before. No other renal abnormality. Stents within the common bile and pancreatic ducts remain in stable, satisfactory position. The common bile duct is now decompressed: 5 mm. Water-soluble enteric contrast was administered which opacifies the stomach duodenum and jejunum. There is no extravasation through the suspected site of perforation in the medial descending duodenum. In addition, the volume of extraperitoneal air within the posterior retroperitoneum including both anterior pararenal spaces and also with minor extension anteriorly has decreased considerably since CT two days ago. Small amount of simple free fluid seen in the true pelvis shows slight increased. Urinary bladder is normal. Normal-appearing postmenopausal uterus and ovaries seen - as before. The stomach, duodenum, small bowel, appendix and colon are normal. Bone windows show no osseous abnormality IMPRESSION: 1. Moderate decrease in extraperitoneal gas within the upper abdomen with near-complete resolution in pneumomediastinum and left pneumothorax. Moreover, the administered water-soluble enteric contrast does not extravasate from the former rent in the descending duodenum, thus, there is no current evidence of upper GI tract perforation. 2. Both biliary and pancreatic stents are in stable satisfactory position. Common bile duct is decompressed and has returned to normal caliber (5 mm). 3. Small amount of simple appearing free fluid in the true pelvis - slight increase. 4. Bilateral lower lobe infiltrates and atelectasis with small bilateral pleural effusions showing slight worsening Interpreted and Authenticated by: Darian Nielson 07/01/18
[2018-07-01] MEDS ORDERED: fentaNYL 25 MCG PATCH TOPICAL SCH (10:00)
[2018-07-01] MEDS: LEVOFLOXACIN 750 MG/150 ML BAG IV SCH (10:05)
[2018-07-01] MEDS: ASPIRIN 81 MG TAB.CHEW PO SCH (11:23)
[2018-07-01] MEDS: OLMESARTAN MEDOXOMIL 20 MG TABLET PO SCH (11:24)
[2018-07-01] MEDS: METOCLOPRAMIDE 10 MG/2 ML VIAL IV SCH ×3 (12:37→23:49)
[2018-07-01] MEDS ORDERED: MAGNESIUM SULFATE 2 GM/50 ML BAG IV ONE (13:25)
[2018-07-01] MEDS ORDERED: POTASSIUM PHOSPHATE 40 MEQ in DEXTROSE 5% IN WATER 500 ML IV ONE (13:25)
[2018-07-01] MEDS: ATORVASTATIN 20 MG TABLET PO SCH (19:58)
[2018-07-01] MEDS: MELATONIN 3 MG TABLET PO SCH (19:58)
[2018-07-02] MEDS: INSULIN LISPRO 1 UNIT/0.01 ML UNIT SQ SCH ×4 (00:30→16:26)
[2018-07-02] MEDS: fentaNYL 100 MCG/2 ML VIAL IV PRN ×3 (01:30→19:29)
[2018-07-02] MEDS: PANTOPRAZOLE 80 MG in 0.9 % SODIUM CHLORIDE 100 ML IV SCH (02:31)
[2018-07-02] MEDS: ACETAMINOPHEN 650 MG/65 ML BOTTLE IV SCH ×4 (04:31→21:05)
[2018-07-02] MEDS: 0.9 % SODIUM CHLORIDE 1,000 ML IV SCH ×2 (04:32→08:55)
[2018-07-02 05:25] LABS: Basophils # (Auto) 0 K/mcL (0.0-0.3); Basophils % (Auto) 0.3 % (0.0-2.0); Eosinophils # (Auto) 0.1 K/mcL (0.0-0.7); Eosinophils % (Auto) 0.8 % (0.0-7.0); Granulocytes % (Auto) 85.2 % (38.0-78.0); Lymphocytes # (Auto) 0.9 K/mcL (1.5-4.8); Lymphocytes % (Auto) 9.2 % (15.5-49.0); Mean Cell Volume 68.4 fL (80.0-100.0); Mean Corpuscular HGB Conc 30.7 g/dL (31.0-36.0); Monocytes # (Auto) 0.5 K/mcL (0.1-0.9); Monocytes % (Auto) 4.5 % (1.0-12.0); Platelet Count 301 K/mcL (140-440); RBC 5.47 M/mcL (4.00-5.20); Red Cell Distribution Width 15.9 % (11.5-14.5)
[2018-07-02] MEDS: metroNIDAZOLE 500 MG/100 ML BAG IV SCH ×3 (05:27→21:54)
[2018-07-02] MEDS: 0.9 % SODIUM CHLORIDE 10 ML SYRINGE IV SCH ×3 (05:27→22:01)
[2018-07-02] MEDS: METOCLOPRAMIDE 10 MG/2 ML VIAL IV SCH ×3 (05:28→17:57)
[2018-07-02 05:57] LABS: ALT/SGPT 13 U/l (0-40); Albumin 3.3 gm/dL (3.2-5.2); Albumin/Globulin Ratio 0.9 (1.0-2.3); Alkaline Phosphatase 64 U/L (39-117); Bilirubin,Direct < 0.2 mg/dL (0.0-0.3); Blood Urea Nitrogen 5 mg/dl (6-20); Gamma Glutamyl Transpeptidase 147 U/L (5-36); Uric Acid 3.5 mg/dL (2.5-8.0)
[2018-07-02] MEDS: LEVOFLOXACIN 750 MG/150 ML BAG IV SCH (08:30)
[2018-07-02] MEDS: 0.9 % SODIUM CHLORIDE 250 ML IV SCH (08:55)
--- NOTE | 2018-07-02 09:33 | Internal Med Progress Note ---
Medical - PN: Subj Patient information: Note initiated : 07/02/18 at 9:31 am Service Date, if different from initiated Date: [] Patient: Hui Louis a 57 y/o F admitted on 06/29/18 for ERCP. Chief Complaint: [small bowel perforation after ERCP] Interval history: Ms. 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 Cannulation was difficult and accomplished only after pancreatic duct was placed. Papillotomy was performed and a biliary stent was also placed. Several hours after papillotomy, patient became short of breath and complained of abdominal pain and was discovered to have a retroperitoneal perforation. She developed ileus. NGT has since been discontinued. Has not passed flatus or had BM and remains NPO. Developed L peluritic subscapular pain yesterday afternoon, which is impeding use of incentive spirometry. Has been reluctant to sit in chair or walk due to pain. Continues to require 3L O2 to maintain sats. Additional PMFSH (Level 3 Only): Rash and nonspecific skin eruption (Acute) Encounter for long-term current use of high risk medication (Acute) Nonulcer dyspepsia (Chronic) Right ankle pain (Acute) SANTOS (obstructive sleep apnea) (Chronic) Irritable bowel syndrome with diarrhea (Chronic) Morphea (Acute) Osteopenia (Chronic) Sleep apnea (Chronic) Chest pain (Chronic) Left breast lump (Acute) Tendonitis, Achilles, left (Acute) Muscle spasm (Acute) Neck pain (Chronic) Elevated liver enzymes (Chronic) Fatty liver (Acute) Abdominal pain (Chronic) H/O: hysterectomy (Chronic) OP (osteoporosis) (Chronic) Migraines (Chronic) Hepatitis (Chronic) Insomnia (Chronic) Hypercholesteremia (Chronic) Hypertension, essential (Chronic) DMII (diabetes mellitus, type 2) (Chronic) Depression (Chronic) Fatigue (Chronic) Breast cancer (Chronic) Chronic joint pain (Chronic) Anemia (Resolved) Foot pain, bilateral (Resolved) Gallbladder problem (Resolved) Knee pain (Resolved) Liver disease (Resolved) Pancreatitis (Resolved) Rash and nonspecific skin eruption (Resolved) Stomach ulcer (Resolved) Suicidal thoughts (Resolved) Toe pain (Resolved) Upper respiratory infection (Resolved) Urinary tract infection (Resolved) Arthritis (Inactive) Bowel disease (Inactive) Gout (Inactive) Kidney stone on left side (Inactive) Lung disorder (Inactive) OA (osteoarthritis) (Inactive) Surgical history: Past Surgical History (Last Reviewed 06/21/18 @ 10:55 by Mindy Fine RN) H/O neck surgery (Chronic) History of common bile duct surgery (Chronic) H/O breast surgery (Chronic 02/13/05) Hx of cholecystectomy (Chronic) H/O colonoscopy (Chronic 11/08/13) History of breast biopsy (Chronic 06/01/16) - Constitutional Vitals: Vital Signs Temp Pulse Resp BP Pulse Ox 96.9 F L 92 H 19 153/91 96 07/02/18 08:00 07/02/18 08:00 07/02/18 08:00 07/02/18 08:00 07/02/18 08:00 Period Temp Pulse Resp BP Sys/Pinzon Pulse Ox Last 24 Hr 96.4 F-99.1 F 84-92 16-24 138-158/86-95 91-97 Intake and Output 07/01/18 07/02/18 07/02/18 21:59 05:59 13:59 Intake Total 2117.0909 1327 100 Output Total 800 650 Balance 1317.0909 677 100 Weight 169 lb 8 oz Intake & Output: Intake & Output 07/01/18 07/02/18 07/02/18 21:59 05:59 13:59 Intake Total 2117.0909 1327 100 Output Total 800 650 Balance 1317.0909 677 100 Weight 169 lb 8 oz Intake: IV 2117.0909 1327 100 Sodium Chloride 0.9% 1,000 ml @ 1003 997 150 mls/hr IV .[id number] [facility]ARY Rx#: [id number] Sodium Chloride 0.9% 250 ml @ 125 20 mls/hr IV .[id number] [facility]ARY Rx#: [id number] Protonix 80 mg In Sodium 100 100 Chloride 0.9% 100 ml @ 8 MG/HR 10 mls/hr IV Q10H [facility]ARY Rx#: [id number] Output: Void Amount 800 650 Other: Percent of Meal Consumed Refused Urine Appearance Clear Clear Urine Color Bright Yellow Bright Yellow Urine Odor Normal # Bowel Movements 0 0 General appearance: average body habitus, cooperative, mild distress Exam: sitting in chair - Head Head exam: Present: atraumatic, normal inspection, normocephalic - Neck Additional comments: crepitus left side; none on right - Respiratory Respiratory exam: Present: decreased breath sounds Additional comments: bilateral crackles in bases - Cardiovascular Cardiovascular exam: Present: normal rate and rhythm. Absent: systolic murmur - GI/Abdominal GI/Abdominal exam: Present: soft, hypoactive bowel sounds. Absent: organomegaly, tenderness - Neurological Exam Neurological exam: Present: alert - Psychiatric Psychiatric exam: Present: normal affect, normal mood - Skin Skin exam: Present: dry, normal color, warm. Absent: pallor Medical - PN: Obj Da - Labs CBC & Chem 7: 07/02/18 03:40 07/02/18 03:40 Labs: Abnormal Lab Results 07/02/18 07/02/18 07/01/18 03:40 03:40 03:50 RBC 5.47 H Hgb 11.5 L Hct MCV 68.4 L MCH 21.0 L MCHC 30.7 L RDW 15.9 H Gran % 85.2 H Lymph % (Auto) 9.2 L Gran # 8.6 H Lymph # (Auto) 0.9 L Carbon Dioxide 21 L BUN 5 L 4 L Creatinine 0.5 L Glucose 142 H Calcium 7.8 L 7.9 L Phosphorus 1.6 L 1.6 L GGT 147 H 133 H Albumin/Globulin Ratio 0.9 L 0.9 L 07/01/18 06/30/18 06/30/18 03:50 03:40 03:40 RBC 5.53 H Hgb 11.5 L 10.6 L Hct 34.3 L MCV 68.6 L 68.6 L MCH 20.9 L 21.1 L MCHC 30.4 L 30.7 L RDW 16.3 H 16.0 H Gran % 82.3 H Lymph % (Auto) 14.4 L Gran # Lymph # (Auto) 1.0 L Carbon Dioxide BUN Creatinine Glucose 151 H Calcium 8.0 L Phosphorus 2.6 L GGT 141 H Albumin/Globulin Ratio Meds: Medications Aspirin (Aspirin) 81 mg PO DAILY [facility] [place] Last Admin: 07/01/18 11:23 Dose: Not Given Documented by: Atorvastatin Calcium (Lipitor) 40 mg PO HS [facility] [place] Last Admin: 07/01/18 19:58 Dose: Not Given Documented by: Dextrose (Dextrose 50%) 0 ml IV UD PRN PRN Reason: Hypoglycemia Diagnostic Test (Pha) (Accu-Chek) 1 each FS Q6 [facility] Last Admin: 07/02/18 05:45 Dose: 1 each Documented by: Diphenhydramine HCl (Benadryl) 50 mg IV Q4HP PRN PRN Reason: Allergic Symptoms Last Admin: 07/01/18 04:24 Dose: 50 mg Documented by: Fentanyl (Sublimaze) 25 mcg IV Q1HP PRN PRN Reason: PAIN LEVEL > 6 Last Admin: 07/02/18 01:30 Dose: 25 mcg Documented by: Fentanyl (Duragesic) 25 mcg TOPICAL Q72H [facility] Last Admin: 07/01/18 11:31 Dose: 25 mcg Documented by: Sodium Chloride (Sodium Chloride 0.9%) 1,000 mls @ 150 mls/hr IV .[id number] [facility]ARY Last Admin: 07/02/18 08:55 Dose: Not Given Documented by: Acetaminophen (Ofirmev) 650 mg in 65 mls @ 130 mls/hr IV Q6H [facility] Last Infusion: 07/02/18 05:05 Dose: Infused Documented by: Pantoprazole Sodium 80 mg/ (Sodium Chloride) 100 mls @ 10 mls/hr IV Q10H [facility] Last Admin: 07/02/18 02:31 Dose: 8 mg/hr, 10 mls/hr Documented by: Metronidazole (Flagyl) 500 mg in 100 mls @ 100 mls/hr IV Q8H [facility]; Protocol Last Infusion: 07/02/18 06:30 Dose: Infused Documented by: Levofloxacin (Levaquin) 750 mg in 150 mls @ 100 mls/hr IV Q24H [facility]; Protocol Last Infusion: 07/01/18 11:40 Dose: Infused Documented by: Sodium Chloride (Sodium Chloride 0.9%) 250 mls @ 20 mls/hr IV .[id number] [facility] [place] Last Admin: 07/02/18 08:55 Dose: Not Given Documented by: Insulin Human Lispro (Humalog) 0 unit SQ Q6 [facility]; Protocol Last Admin: 07/02/18 05:45 Dose: Not Given Documented by: Lorazepam (Ativan) 0.5 mg IV Q2HP PRN PRN Reason: ANXIETY/SEDATION Melatonin (Melatonin 3mg Tablet) 3 mg PO HS [facility] [place] Last Admin: 07/01/18 19:58 Dose: Not Given Documented by: Metoclopramide HCl (Reglan) 10 mg IV Q6 [facility] [place] Last Admin: 07/02/18 05:28 Dose: 10 mg Documented by: Olmesartan (Benicar) 40 mg PO DAILY [facility] [place] Last Admin: 07/01/18 11:24 Dose: Not Given Documented by: Ondansetron HCl (Zofran) 4 mg IV Q4HP PRN PRN Reason: Nausea And Vomiting Last Admin: 07/01/18 11:34 Dose: 4 mg Documented by: Sodium Chloride (Saline Flush) 10 ml IV Q8 [facility] [place] Last Admin: 07/02/18 05:27 Dose: Not Given Documented by: Medical - PN: A/P - Time Spent With Patient Total time spent is greater than 50% in coordination of care (as documented) at patient's floor/unit and/or counseling patient: 15 - 24 minutes (1) Small bowel perforation Status: Acute Assessment and plan: Nearly resolved on recent imaging. Discussed with Dr. Berry and Dr. Redman. Will D/C IV fentanyl and try celebrex for pain. Encouraged incentive spirometry. Dr. Redman will order chest physio. Encouraged patient to ambulate. Will continue to follow with hospitalist. Current Visit: Yes (2) Ileus Status: Acute Assessment and plan: Resolved. Will advance to clear liquid diet. Current Visit: Yes Medical - PN: Qual - VTE Deep Vein Thrombosis/Pulmonary Embolism Present on Admission: No
--- NOTE | 2018-07-02 09:43 | Internal Med Progress Note ---
Medical - PN: Subj Patient information: Note initiated : 07/02/18 at 9:40 am Service Date, if different from initiated Date: [] Patient: Hui Louis a 57 y/o F admitted on 06/29/18 for ERCP. Chief Complaint: [] Interval history: Ms. Louis is a 57 year old F with h/o DM, h/o ERCP in the past, admitted to the hospital s/p ERCP. The patient had abdominal pain, dialated cbd, and needed repeat ERCP, she underwent the procedure and unfortunately developed perforation of the bowel postprocedure. The patient has significant abdominal pain throughout her abdomen, also has some chest congestion. The patient is being ad mitted to the hospital for management of pain as well as bowel perforation. GI is following this patient. Medicine has been asked to help with medical management of chronic medical conditions as well as pain management. On my evaluation patient was quite drowsy, had received Benadryl as well as D ilaudid for pain management along with Ativan. Patient besides abdominal pain denies any other acute complaints. I reviewed her allergy list it looks like patient is allergic to all pain medications she reports that she has itching with all pain medications. On her allergy list she is also allergic to Tylenol, [as part of Vicodin] She denies any allergies suggestive of anaphylaxis, angioedema or respiratory distress. Itching is her only allergic symptoms. 06/30 Pt seen examined, no acute issues,k pain control is better compared to yesterday itching symptoms better with fentanyl than other opiates analogues Pt X ray shows bibasilar infiltrates/atelectasiss pt is no antibiotics NG tube has some bloody suction, IV PPI ongoing as per GI GI team is predminanty driving management in this patient 07/01 patient seen examined, no acute issues, still has abodminal pain, nausea better no bowel movements, did not pass gas on IV ppi ggt as per GI Plan for CT today as per GI 07/02 patient seen examined, no acute issues electrolyte stable Left side pain in the scapular region since yesterday, still has abdominal pain, needed IV fentanyl twice, no flatus or bowel movements pt not ambulating much Pertinent ROS: Denies headache, dizziness Denies chest pain, palpitations (left sided ches pain on the scapular region) Denies cough or shortness of breath no nausea, present abdominal pain. - Constitutional Vitals: Vital Signs Temp Pulse Resp BP Pulse Ox 96.9 F L 92 H 19 153/91 96 07/02/18 08:00 07/02/18 08:00 07/02/18 08:00 07/02/18 08:00 07/02/18 08:00 Period Temp Pulse Resp BP Sys/Pinzon Pulse Ox Last 24 Hr 96.4 F-99.1 F 84-92 16-24 138-158/86-95 91-97 Intake and Output 07/01/18 07/02/18 07/02/18 21:59 05:59 13:59 Intake Total 2117.0909 1327 100 Output Total 800 650 Balance 1317.0909 677 100 Weight 169 lb 8 oz Intake & Output: Intake & Output 07/01/18 07/02/18 07/02/18 21:59 05:59 13:59 Intake Total 2117.0909 1327 100 Output Total 800 650 Balance 1317.0909 677 100 Weight 169 lb 8 oz Intake: IV 2117.0909 1327 100 Sodium Chloride 0.9% 1,000 ml @ 1003 997 150 mls/hr IV .[id number] [facility] Rx#: [id number] Sodium Chloride 0.9% 250 ml @ 125 20 mls/hr IV .[id number] [facility] Rx#: [id number] Protonix 80 mg In Sodium 100 100 Chloride 0.9% 100 ml @ 8 MG/HR 10 mls/hr IV Q10H [facility] Rx#: [id number] Output: Void Amount 800 650 Other: Percent of Meal Consumed Refused Urine Appearance Clear Clear Urine Color Bright Yellow Bright Yellow Urine Odor Normal # Bowel Movements 0 0 Exam: Constitutional; Afebrile, cooperative, alert, not in distress. Respiratory system: Air Entry equal on both sides, bibasilar crackles, decreased air entry, pt has poor effort CVS- Rate rhythm regular, S1,S2 heard, no gallop, no rub. Abdomen- Hypoactive bowel tones, pt has generalized tenderness. 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 Medical - PN: Obj Da - Labs CBC & Chem 7: 07/02/18 03:40 07/02/18 03:40 Labs: Abnormal Lab Results 07/02/18 07/02/18 07/01/18 03:40 03:40 03:50 RBC 5.47 H Hgb 11.5 L Hct MCV 68.4 L MCH 21.0 L MCHC 30.7 L RDW 15.9 H Gran % 85.2 H Lymph % (Auto) 9.2 L Gran # 8.6 H Lymph # (Auto) 0.9 L Carbon Dioxide 21 L BUN 5 L 4 L Creatinine 0.5 L Glucose 142 H Calcium 7.8 L 7.9 L Phosphorus 1.6 L 1.6 L GGT 147 H 133 H Albumin/Globulin Ratio 0.9 L 0.9 L 07/01/18 06/30/18 06/30/18 03:50 03:40 03:40 RBC 5.53 H Hgb 11.5 L 10.6 L Hct 34.3 L MCV 68.6 L 68.6 L MCH 20.9 L 21.1 L MCHC 30.4 L 30.7 L RDW 16.3 H 16.0 H Gran % 82.3 H Lymph % (Auto) 14.4 L Gran # Lymph # (Auto) 1.0 L Carbon Dioxide BUN Creatinine Glucose 151 H Calcium 8.0 L Phosphorus 2.6 L GGT 141 H Albumin/Globulin Ratio Meds: Medications Aspirin (Aspirin) 81 mg PO DAILY [facility] Last Admin: 07/01/18 11:23 Dose: Not Given Documented by: Atorvastatin Calcium (Lipitor) 40 mg PO HS [facility] Last Admin: 07/01/18 19:58 Dose: Not Given Documented by: Dextrose (Dextrose 50%) 0 ml IV UD PRN PRN Reason: Hypoglycemia Diagnostic Test (Pha) (Accu-Chek) 1 each FS Q6 [facility] Last Admin: 07/02/18 05:45 Dose: 1 each Documented by: Diphenhydramine HCl (Benadryl) 50 mg IV Q4HP PRN PRN Reason: Allergic Symptoms Last Admin: 07/01/18 04:24 Dose: 50 mg Documented by: Fentanyl (Sublimaze) 25 mcg IV Q1HP PRN PRN Reason: PAIN LEVEL > 6 Last Admin: 07/02/18 01:30 Dose: 25 mcg Documented by: Fentanyl (Duragesic) 25 mcg TOPICAL Q72H [facility] Last Admin: 07/01/18 11:31 Dose: 25 mcg Documented by: Acetaminophen (Ofirmev) 650 mg in 65 mls @ 130 mls/hr IV Q6H [facility] Last Infusion: 07/02/18 05:05 Dose: Infused Documented by: Metronidazole (Flagyl) 500 mg in 100 mls @ 100 mls/hr IV Q8H [facility]; Protocol Last Infusion: 07/02/18 06:30 Dose: Infused Documented by: Levofloxacin (Levaquin) 750 mg in 150 mls @ 100 mls/hr IV Q24H [facility]; Protocol Last Infusion: 07/01/18 11:40 Dose: Infused Documented by: Sodium Chloride (Sodium Chloride 0.9%) 250 mls @ 20 mls/hr IV .[id number] [facility] Last Admin: 07/02/18 08:55 Dose: Not Given Documented by: Potassium Chloride/Dextrose/Sod Cl (Dextrose 5%-1/2ns W/20meq Kcl) 1,000 mls @ 75 mls/hr IV .[id number] [facility] Insulin Human Lispro (Humalog) 0 unit SQ Q6 [facility]; Protocol Last Admin: 07/02/18 05:45 Dose: Not Given Documented by: Lorazepam (Ativan) 0.5 mg IV Q2HP PRN PRN Reason: ANXIETY/SEDATION Melatonin (Melatonin 3mg Tablet) 3 mg PO HS [facility] Last Admin: 07/01/18 19:58 Dose: Not Given Documented by: Metoclopramide HCl (Reglan) 10 mg IV Q6 [facility] Last Admin: 07/02/18 05:28 Dose: 10 mg Documented by: Olmesartan (Benicar) 40 mg PO DAILY [facility] Last Admin: 07/01/18 11:24 Dose: Not Given Documented by: Ondansetron HCl (Zofran) 4 mg IV Q4HP PRN PRN Reason: Nausea And Vomiting Last Admin: 07/01/18 11:34 Dose: 4 mg Documented by: Pantoprazole Sodium (Protonix) 40 mg IV BIDAC [facility] Sodium Chloride (Saline Flush) 10 ml IV Q8 [facility] Last Admin: 07/02/18 05:27 Dose: Not Given Documented by: Medical - PN: A/P - Time Spent With Patient Total time spent is greater than 50% in coordination of care (as documented) at patient's floor/unit and/or counseling patient: - Narrative A/P Narrative: A/P Bowel perforation -retroperitoneal perforation likely, s/p ERCP, patient is being followed by Dr Berry and his team. Dr Simon also helping out in management. -CT did not show any abscess or fluid accumulation, no contrast in leaking from the bowel. Aspiration Pneumonitis - on levofloxacin and flagyl, -strongly encouraged incentive spirometer. -pulmonary physical therapy. ABdominal pain -NG discontinued. -IV tylenol scheduled -TDD fentanyl at 25mcg, pt has needed IV fentanyl x2 since yesterday, does not have much of an allergic reaction to these meds -Start n celebrex -IV ppi, now switch drip to bid Left chest pain, subscapular -appears to be referred pain , appears pleuritic in nature, -x ray chest and abdomen DM -clear liquid diet as per GI HTN/HLD resume home meds DVT SCD Full code Medical - PN: Qual - VTE Deep Vein Thrombosis/Pulmonary Embolism Present on Admission: No
[2018-07-02] MEDS ORDERED: DEXTROSE 5%-1/2NS W/20MEQ KCL 1,000 ML IV SCH (09:45)
[2018-07-02] MEDS: OLMESARTAN MEDOXOMIL 20 MG TABLET PO SCH (09:52)
[2018-07-02] MEDS: ASPIRIN 81 MG TAB.CHEW PO SCH (09:52)
[2018-07-02] MEDS: ONDANSETRON 4 MG/2 ML VIAL IV PRN ×3 (09:55→20:17)
[2018-07-02] MEDS: DEXTROSE 5%-1/2NS W/20MEQ KCL 1,000 ML IV SCH (11:15)
--- NOTE | 2018-07-02 11:42 | XRay Report ---
INDICATION: Chest pain TECHNIQUE: PA chest x-ray COMPARISON: Previous chest x-rays dated 06/30/2018, 06/28/2018, 08/07/2016. Previous CT scan dated 07/01/2018, 06/29/2018. FINDINGS: Decreased pneumoretroperitoneum since 06/30/2018. No detectable pneumoperitoneum Bilateral perihilar pulmonary parenchymal infiltrates. Findings are worse since previous examination. Atypical pneumonia including viral pneumonia is possible. Clinical correlation follow-up radiographs recommended. No change in heart size. Pulmonary vascularity is within normal limits. There are no septal lines. No alveolar infiltrates. There is mild blunting of the costophrenic angles bilaterally consistent with small effusions. There is no pneumomediastinum or pneumothorax. Previous examination demonstrated subcutaneous emphysema in the soft tissues of the neck. This has almost completely resolved IMPRESSION: 1. Decreased pneumoretroperitoneum. No pneumothorax or pneumomediastinum 2. Mild bilateral perihilar infiltrates. Atypical pneumonia including viral pneumonia are possible. Clinical correlation follow-up radiographs recommended Interpreted and Authenticated by: Darian Caballero 07/02/18
--- NOTE | 2018-07-02 11:50 | XRay Report ---
CLINICAL INFORMATION: History of perforated duodenum TECHNIQUE: Supine and upright abdomen COMPARISON: Most recent previous CT scan dated 07/01/2018 FINDINGS: There is a common bile duct stent. There is a probable pancreatic duct stent. There is contrast material throughout the colon. No colonic dilatation or evidence for obstruction. No dilated gas-filled small bowel. There is extraluminal gas consistent with extensive pneumo retroperitoneum. No definite pneumoperitoneum. Extent of pneumoretroperitoneum is somewhat difficult to compare with previous CT scan. Digital financial cost analyst radiograph and present plain film examination appear essentially unchanged. No mechanical small bowel obstruction. No new focal abnormality. IMPRESSION: 1. Stents within the common bile duct and pancreatic duct. 2. Prominent pneumo retroperitoneum. This appears essentially unchanged since 07/01/2018 Interpreted and Authenticated by: Darian Caballero 07/02/18
[2018-07-02] MEDS: diphenhydrAMINE 50 MG/ML VIAL IV PRN ×2 (12:00→19:31)
[2018-07-02] MEDS: PANTOPRAZOLE 40 MG VIAL IV SCH (16:22)
[2018-07-02] MEDS: ATORVASTATIN 20 MG TABLET PO SCH (20:16)
[2018-07-02] MEDS: MELATONIN 3 MG TABLET PO SCH (20:17)
[2018-07-03] MEDS: INSULIN LISPRO 1 UNIT/0.01 ML UNIT SQ SCH ×5 (00:14→20:23)
[2018-07-03] MEDS: METOCLOPRAMIDE 10 MG/2 ML VIAL IV SCH ×4 (00:15→16:13)
[2018-07-03] MEDS: fentaNYL 100 MCG/2 ML VIAL IV PRN ×4 (00:30→22:45)
[2018-07-03] MEDS: diphenhydrAMINE 50 MG/ML VIAL IV PRN ×4 (00:30→22:45)
[2018-07-03] MEDS: DEXTROSE 5%-1/2NS W/20MEQ KCL 1,000 ML IV SCH ×3 (00:44→16:23)
[2018-07-03] MEDS: ACETAMINOPHEN 650 MG/65 ML BOTTLE IV SCH ×5 (03:38→22:27)
[2018-07-03 05:09] LABS: Basophils # (Auto) 0 K/mcL (0.0-0.3); Basophils % (Auto) 0.5 % (0.0-2.0); Eosinophils # (Auto) 0.2 K/mcL (0.0-0.7); Eosinophils % (Auto) 3.4 % (0.0-7.0); Granulocytes % (Auto) 67.9 % (38.0-78.0); Lymphocytes # (Auto) 1.6 K/mcL (1.5-4.8); Lymphocytes % (Auto) 21.8 % (15.5-49.0); Mean Corpuscular HGB Conc 30.7 g/dL (31.0-36.0); Monocytes # (Auto) 0.5 K/mcL (0.1-0.9); Monocytes % (Auto) 6.4 % (1.0-12.0); Platelet Count 294 K/mcL (140-440); RBC 5.13 M/mcL (4.00-5.20); Red Cell Distribution Width 15.7 % (11.5-14.5)
[2018-07-03] MEDS: metroNIDAZOLE 500 MG/100 ML BAG IV SCH ×3 (05:13→21:16)
[2018-07-03] MEDS: 0.9 % SODIUM CHLORIDE 10 ML SYRINGE IV SCH ×3 (05:14→22:28)
[2018-07-03 05:30] LABS: ALT/SGPT 19 U/l (0-40); Albumin/Globulin Ratio 0.9 (1.0-2.3); Alkaline Phosphatase 77 U/L (39-117); Bilirubin,Direct < 0.2 mg/dL (0.0-0.3); Blood Urea Nitrogen 5 mg/dl (6-20); Gamma Glutamyl Transpeptidase 173 U/L (5-36); Uric Acid 3.4 mg/dL (2.5-8.0)
[2018-07-03] MEDS ORDERED: INSULIN LISPRO 1 UNIT/0.01 ML UNIT SQ SCH (07:30)
[2018-07-03] MEDS: PANTOPRAZOLE 40 MG VIAL IV SCH ×2 (08:51→16:13)
[2018-07-03] MEDS: ASPIRIN 81 MG TAB.CHEW PO SCH (09:06)
[2018-07-03] MEDS: OLMESARTAN MEDOXOMIL 20 MG TABLET PO SCH (09:06)
[2018-07-03] MEDS: LEVOFLOXACIN 750 MG/150 ML BAG IV SCH (09:07)
--- NOTE | 2018-07-03 09:52 | Internal Med Progress Note ---
Medical - PN: Subj Patient information: Note initiated : 07/03/18 at 9:49 am Service Date, if different from initiated Date: [] Patient: Hui Louis a 57 y/o F admitted on 06/29/18 for ERCP. Chief Complaint: [] Interval history: Ms. Louis is a 57 year old F with h/o DM, h/o ERCP in the past, admitted to the hospital s/p ERCP. The patient had abdominal pain, dialated cbd, and needed repeat ERCP, she underwent the procedure and unfortunately developed perforation of the bowel postprocedure. The patient has significant abdominal pain throughout her abdomen, also has some chest congestion. The patient is being ad mitted to the hospital for management of pain as well as bowel perforation. GI is following this patient. Medicine has been asked to help with medical management of chronic medical conditions as well as pain management. On my evaluation patient was quite drowsy, had received Benadryl as well as D ilaudid for pain management along with Ativan. Patient besides abdominal pain denies any other acute complaints. I reviewed her allergy list it looks like patient is allergic to all pain medications she reports that she has itching with all pain medications. On her allergy list she is also allergic to Tylenol, [as part of Vicodin] She denies any allergies suggestive of anaphylaxis, angioedema or respiratory distress. Itching is her only allergic symptoms. 06/30 Pt seen examined, no acute issues,k pain control is better compared to yesterday itching symptoms better with fentanyl than other opiates analogues Pt X ray shows bibasilar infiltrates/atelectasiss pt is no antibiotics NG tube has some bloody suction, IV PPI ongoing as per GI GI team is predminanty driving management in this patient 07/01 patient seen examined, no acute issues, still has abodminal pain, nausea better no bowel movements, did not pass gas on IV ppi ggt as per GI Plan for CT today as per GI 07/02 patient seen examined, no acute issues electrolyte stable Left side pain in the scapular region since yesterday, still has abdominal pain, needed IV fentanyl twice, no flatus or bowel movements pt not ambulating much 07/03 patient seen examined,feels better passed gas yesterday and this morning, no bowel movements yet pain control is reasonable, tolerating clear liquids well. xfer to med surg status Pertinent ROS: Denies headache, dizziness Denies chest pain, palpitations Denies cough or shortness of breath abdominal pain improving, no nausea or vomiting, . - Constitutional Vitals: Vital Signs Temp Pulse Resp BP Pulse Ox 98.4 F 69 18 139/89 94 07/03/18 09:32 07/03/18 07:34 07/03/18 07:34 07/03/18 09:32 07/03/18 09:32 Period Temp Pulse Resp BP Sys/Pinzon Pulse Ox Last 24 Hr 96.9 F-98.4 F 69-96 16-24 121-159/77-104 91-99 Intake and Output 07/02/18 07/03/18 07/03/18 21:59 05:59 13:59 Intake Total 350 1215 100 Output Total 2800 300 800 Balance -2450 915 -700 Weight 168 lb 8 oz Intake & Output: Intake & Output 07/02/18 07/03/18 07/03/18 21:59 05:59 13:59 Intake Total 350 1215 100 Output Total 2800 300 800 Balance -2450 915 -700 Weight 168 lb 8 oz Intake: IV 230 1165 100 Dextrose 5%-1/2Ns W/20Meq KCl 1 1000 ,000 ml @ 75 mls/hr IV Q13H [facility] Rx#:[id number] Oral 120 50 Output: Void Amount 2800 300 800 Other: Percent of Meal Consumed NPO Urine Appearance Clear Clear Clear Urine Color Dark Yellow Dark Yellow Dark Yellow Urine Odor Normal Normal # Voids 4 # Bowel Movements 0 Exam: Constitutional; Afebrile, cooperative, alert, not in distress. Respiratory system: Air Entry equal on both sides, No crackles or wheezing, no rhonchi. CVS- Rate rhythm regular, S1,S2 heard, no gallop, no rub. Abdomen- gen tenderness, improving. bowel tones present, but still sluggish [employer]- AOOx3, moving all extremities, no gross focal deficit noted. Medical - PN: Obj Da - Labs CBC & Chem 7: 07/03/18 03:45 07/03/18 03:45 Labs: Abnormal Lab Results 07/03/18 07/03/18 07/02/18 03:45 03:45 03:40 RBC Hgb 10.9 L Hct 35.4 L MCV 69.0 L MCH 21.2 L MCHC 30.7 L RDW 15.7 H Gran % Lymph % (Auto) Gran # Lymph # (Auto) Carbon Dioxide 21 L BUN 5 L 5 L Creatinine 0.5 L 0.5 L Glucose 166 H 142 H Calcium 8.1 L 7.8 L Phosphorus 1.9 L 1.6 L GGT 173 H 147 H Albumin 3.0 L Albumin/Globulin Ratio 0.9 L 0.9 L 07/02/18 07/01/18 07/01/18 03:40 03:50 03:50 RBC 5.47 H 5.53 H Hgb 11.5 L 11.5 L Hct MCV 68.4 L 68.6 L MCH 21.0 L 20.9 L MCHC 30.7 L 30.4 L RDW 15.9 H 16.3 H Gran % 85.2 H Lymph % (Auto) 9.2 L Gran # 8.6 H Lymph # (Auto) 0.9 L Carbon Dioxide BUN 4 L Creatinine Glucose Calcium 7.9 L Phosphorus 1.6 L GGT 133 H Albumin Albumin/Globulin Ratio 0.9 L Meds: Medications Aspirin (Aspirin) 81 mg PO DAILY [facility] Last Admin: 07/03/18 09:06 Dose: 81 mg Documented by: Atorvastatin Calcium (Lipitor) 40 mg PO HS [facility] Last Admin: 07/02/18 20:16 Dose: 40 mg Documented by: Dextrose (Dextrose 50%) 0 ml IV UD PRN PRN Reason: Hypoglycemia Diagnostic Test (Pha) (Accu-Chek) 1 each FS ACHS [facility] Last Admin: 07/03/18 08:52 Dose: 1 each Documented by: Diphenhydramine HCl (Benadryl) 50 mg IV Q4HP PRN PRN Reason: Allergic Symptoms Last Admin: 07/03/18 00:30 Dose: 50 mg Documented by: Fentanyl (Sublimaze) 25 mcg IV Q1HP PRN PRN Reason: PAIN LEVEL > 6 Last Admin: 07/03/18 00:30 Dose: 25 mcg Documented by: Fentanyl (Duragesic) 25 mcg TOPICAL Q72H [facility] Last Admin: 07/01/18 11:31 Dose: 25 mcg Documented by: Acetaminophen (Ofirmev) 650 mg in 65 mls @ 130 mls/hr IV Q6H [facility] Last Admin: 07/03/18 09:09 Dose: 130 mls/hr Documented by: Metronidazole (Flagyl) 500 mg in 100 mls @ 100 mls/hr IV Q8H [facility]; Protocol Last Infusion: 07/03/18 06:21 Dose: Infused Documented by: Levofloxacin (Levaquin) 750 mg in 150 mls @ 100 mls/hr IV Q24H [facility]; Protocol Last Admin: 07/03/18 09:07 Dose: 100 mls/hr Documented by: Potassium Chloride/Dextrose/Sod Cl (Dextrose 5%-1/2ns W/20meq Kcl) 1,000 mls @ 75 mls/hr IV Q13H [facility] Last Admin: 07/03/18 00:44 Dose: 75 mls/hr Documented by: Insulin Human Lispro (Humalog) 0 unit SQ ACHS [facility]; Protocol Last Admin: 07/03/18 09:04 Dose: 1 unit Documented by: Lorazepam (Ativan) 0.5 mg IV Q2HP PRN PRN Reason: ANXIETY/SEDATION Melatonin (Melatonin 3mg Tablet) 3 mg PO HS [facility] Last Admin: 07/02/18 20:17 Dose: 3 mg Documented by: Metoclopramide HCl (Reglan) 10 mg IV Q6 [facility] Last Admin: 07/03/18 05:14 Dose: 10 mg Documented by: Olmesartan (Benicar) 40 mg PO DAILY [facility] Last Admin: 07/03/18 09:06 Dose: 40 mg Documented by: Ondansetron HCl (Zofran) 4 mg IV Q4HP PRN PRN Reason: Nausea And Vomiting Last Admin: 07/02/18 20:17 Dose: 4 mg Documented by: Pantoprazole Sodium (Protonix) 40 mg IV BIDAC [facility] Last Admin: 07/03/18 08:51 Dose: 40 mg Documented by: Sodium Chloride (Saline Flush) 10 ml IV Q8 [facility] Last Admin: 07/03/18 05:14 Dose: 10 ml Documented by: Medical - PN: A/P - Time Spent With Patient Total time spent is greater than 50% in coordination of care (as documented) at patient's floor/unit and/or counseling patient: - Narrative A/P Narrative: A/P Bowel perforation -retroperitoneal perforation likely, s/p ERCP, patient is being followed by Dr Berry and his team. Dr Simon also helping out in management. -CT did not show any abscess or fluid accumulation, no contrast in leaking from the bowel. -management per GI Aspiration Pneumonitis - on levofloxacin and flagyl, -strongly encouraged incentive spirometer. -pulmonary physical therapy. ABdominal pain -NG discontinued. -IV tylenol scheduled -TDD fentanyl at 25mcg, pt has needed IV fentanyl , does not have much of an allergic reaction to these meds -Started on celebrex -IV ppi, now switch drip to bid DM -clear liquid diet as per GI HTN/HLD resume home meds DVT SCD Full code XFer to med surg status Medical - PN: Qual - VTE Deep Vein Thrombosis/Pulmonary Embolism Present on Admission: No
[2018-07-03] MEDS ORDERED: LORazepam 2 MG/ML VIAL IV PRN (09:55)
[2018-07-03] MEDS ORDERED: DEXTROSE 50% 50 ML VIAL IV PRN (09:55)
[2018-07-03] MEDS: ONDANSETRON 4 MG/2 ML VIAL IV PRN ×2 (12:15→17:27)
--- NOTE | 2018-07-03 15:46 | Internal Med Progress Note ---
Medical - PN: Subj Patient information: Note initiated : 07/03/18 at 3:44 pm Service Date, if different from initiated Date: [] Patient: Hui Louis a 57 y/o F admitted on 06/29/18 for ERCP. Chief Complaint: [small bowel perforation after ERCP] Interval history: Ms. 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 Cannulation was difficult and accomplished only after pancreatic duct was placed. Papillotomy was performed and a biliary stent was also placed. Several hours after papillotomy, patient became short of breath and complained of abdominal pain and was discovered to have a retroperitoneal perforation. She developed ileus. NGT has since been discontinued. Patient now passing flatus, but no BM. Has required Zofran and fentanyl once today. No longer requiring oxygen. Has been ambulating. Has concerns about returning home, requesting possible home health x 1 week. - Constitutional Vitals: Vital Signs Temp Pulse Resp BP Pulse Ox 98.2 F 69 20 135/90 97 07/03/18 15:31 07/03/18 07:34 07/03/18 15:31 07/03/18 15:31 07/03/18 15:31 Period Temp Pulse Resp BP Sys/Pinzon Pulse Ox Last 24 Hr 96.9 F-99.6 F 69-83 16-24 112-159/77-104 91-99 Intake and Output 07/03/18 07/03/18 07/03/18 05:59 13:59 21:59 Intake Total 1215 315 520 Output Total 633 672 6416 Balance 915 -485 480 Intake & Output: Intake & Output 07/03/18 07/03/18 07/03/18 05:59 13:59 21:59 Intake Total 1215 315 520 Output Total 680 188 6355 Balance 915 -485 -480 Intake: IV 1165 315 Dextrose 5%-1/2Ns W/20Meq KCl 1 1000 ,000 ml @ 75 mls/hr IV Q13H [facility] Rx#:[id number] Oral 50 520 Output: Void Amount 202 229 1118 Other: Meal Lunch Percent of Meal Consumed 100% Feeding Ability Independent Urine Appearance Clear Clear Urine Color Dark Yellow Dark Yellow Urine Odor Normal # Voids 1 # Bowel Movements 0 0 General appearance: average body habitus, cooperative, no acute distress - Head Head exam: Present: atraumatic, normal inspection, normocephalic - Neck Neck exam: Present: normal inspection. Absent: thyromegaly Additional comments: Crepitus nearly resolved - Respiratory Additional comments: decreased bases bilaterally with fine crackles - Cardiovascular Cardiovascular exam: Present: normal rate and rhythm. Absent: diastolic murmur, gallop, rubs, systolic murmur - GI/Abdominal GI/Abdominal exam: Present: normal bowel sounds, soft, tenderness. Absent: mass, organomegaly - Neurological Exam Neurological exam: Present: alert, normal gait, oriented X3 - Psychiatric Psychiatric exam: Present: normal affect, normal mood - Skin Skin exam: Present: dry, normal color, warm Medical - PN: Obj Da - Labs CBC & Chem 7: 07/03/18 03:45 07/03/18 03:45 Labs: Abnormal Lab Results 07/03/18 07/03/18 07/02/18 03:45 03:45 03:40 RBC Hgb 10.9 L Hct 35.4 L MCV 69.0 L MCH 21.2 L MCHC 30.7 L RDW 15.7 H Gran % Lymph % (Auto) Gran # Lymph # (Auto) Carbon Dioxide 21 L BUN 5 L 5 L Creatinine 0.5 L 0.5 L Glucose 166 H 142 H Calcium 8.1 L 7.8 L Phosphorus 1.9 L 1.6 L GGT 173 H 147 H Albumin 3.0 L Albumin/Globulin Ratio 0.9 L 0.9 L 07/02/18 07/01/18 07/01/18 03:40 03:50 03:50 RBC 5.47 H 5.53 H Hgb 11.5 L 11.5 L Hct MCV 68.4 L 68.6 L MCH 21.0 L 20.9 L MCHC 30.7 L 30.4 L RDW 15.9 H 16.3 H Gran % 85.2 H Lymph % (Auto) 9.2 L Gran # 8.6 H Lymph # (Auto) 0.9 L Carbon Dioxide BUN 4 L Creatinine Glucose Calcium 7.9 L Phosphorus 1.6 L GGT 133 H Albumin Albumin/Globulin Ratio 0.9 L Meds: Medications Aspirin (Aspirin) 81 mg PO DAILY [facility] Atorvastatin Calcium (Lipitor) 40 mg PO HS [facility] Dextrose (Dextrose 50%) 0 ml IV UD PRN PRN Reason: Hypoglycemia Diagnostic Test (Pha) (Accu-Chek) 1 each FS ACHS [facility] Last Admin: 07/03/18 12:18 Dose: 1 each Documented by: Diphenhydramine HCl (Benadryl) 50 mg IV Q4HP PRN PRN Reason: Allergic Symptoms Last Admin: 07/03/18 12:15 Dose: 50 mg Documented by: Fentanyl (Sublimaze) 25 mcg IV Q1HP PRN PRN Reason: PAIN LEVEL > 6 Last Admin: 07/03/18 12:16 Dose: 25 mcg Documented by: Fentanyl (Duragesic) 25 mcg TOPICAL Q72H [facility] Potassium Chloride/Dextrose/Sod Cl (Dextrose 5%-1/2ns W/20meq Kcl) 1,000 mls @ 75 mls/hr IV Q13H [facility] Last Admin: 07/03/18 12:17 Dose: Not Given Documented by: Levofloxacin (Levaquin) 750 mg in 150 mls @ 100 mls/hr IV Q24H [facility]; Protocol Metronidazole (Flagyl) 500 mg in 100 mls @ 100 mls/hr IV Q8H [facility]; Protocol Last Admin: 07/03/18 13:55 Dose: 100 mls/hr Documented by: Acetaminophen (Ofirmev) 650 mg in 65 mls @ 130 mls/hr IV Q6H [facility] Last Admin: 07/03/18 10:02 Dose: Not Given Documented by: Insulin Human Lispro (Humalog) 0 unit SQ ACHS [facility]; Protocol Last Admin: 07/03/18 12:25 Dose: 2 unit Documented by: Lorazepam (Ativan) 0.5 mg IV Q2HP PRN PRN Reason: ANXIETY/SEDATION Melatonin (Melatonin 3mg Tablet) 3 mg PO HS [facility] Metoclopramide HCl (Reglan) 10 mg IV Q6 [facility] Last Admin: 07/03/18 12:16 Dose: 10 mg Documented by: Olmesartan (Benicar) 40 mg PO DAILY [facility] Ondansetron HCl (Zofran) 4 mg IV Q4HP PRN PRN Reason: Nausea And Vomiting Last Admin: 07/03/18 12:15 Dose: 4 mg Documented by: Pantoprazole Sodium (Protonix) 40 mg IV BIDAC [facility] Sodium Chloride (Saline Flush) 10 ml IV Q8 [facility] Last Admin: 07/03/18 13:18 Dose: 10 ml Documented by: Medical - PN: A/P - Time Spent With Patient Total time spent is greater than 50% in coordination of care (as documented) at patient's floor/unit and/or counseling patient: 15 - 24 minutes (1) Small bowel perforation Status: Resolved Assessment and plan: Resolved. Will DC opioids and try tylenol and Celebrex for pain control; transition to oral meds. Consider home health x 1 week after discharge. Increase IS and ambulation. Will advance to full liquid diet. Current Visit: Yes (2) Ileus Status: Resolved Assessment and plan: Resolved. Will advance to full liquid diet. Current Visit: Yes Medical - PN: Qual - VTE Deep Vein Thrombosis/Pulmonary Embolism Present on Admission: No
[2018-07-03] MEDS ORDERED: CELECOXIB 200 MG CAPSULE PO PRN (15:52)
--- NOTE | 2018-07-03 17:18 | Internal Med Progress Note ---
Medical - PN: Subj Patient information: Note initiated : 07/03/18 at 5:14 pm Service Date, if different from initiated Date: [] Patient: Hui Louis a 57 y/o F admitted on 06/29/18 for ERCP. Chief Complaint: [] Interval history: Ms. Louis is a 57 year old F with h/o DM, h/o ERCP in the past, admitted to the hospital s/p ERCP. The patient had abdominal pain, dialated cbd, and needed repeat ERCP, she underwent the procedure and unfortunately developed perforation of the bowel postprocedure. The patient has significant abdominal pain throughout her abdomen, also has some chest congestion. The patient is being ad mitted to the hospital for management of pain as well as bowel perforation. GI is following this patient. Medicine has been asked to help with medical management of chronic medical conditions as well as pain management. On my evaluation patient was quite drowsy, had received Benadryl as well as D ilaudid for pain management along with Ativan. Patient besides abdominal pain denies any other acute complaints. I reviewed her allergy list it looks like patient is allergic to all pain medications she reports that she has itching with all pain medications. On her allergy list she is also allergic to Tylenol, [as part of Vicodin] She denies any allergies suggestive of anaphylaxis, angioedema or respiratory distress. Itching is her only allergic symptoms. 06/30 Pt seen examined, no acute issues,k pain control is better compared to yesterday itching symptoms better with fentanyl than other opiates analogues Pt X ray shows bibasilar infiltrates/atelectasiss pt is no antibiotics NG tube has some bloody suction, IV PPI ongoing as per GI GI team is predminanty driving management in this patient 07/01 patient seen examined, no acute issues, still has abodminal pain, nausea better no bowel movements, did not pass gas on IV ppi ggt as per GI Plan for CT today as per GI 07/02 patient seen examined, no acute issues electrolyte stable Left side pain in the scapular region since yesterday, still has abdominal pain, needed IV fentanyl twice, no flatus or bowel movements pt not ambulating much 07/03 patient seen examined,feels better passed gas yesterday and this morning, no bowel movements yet pain control is reasonable, tolerating clear liquids well. xfer to med surg status 07/04 - Constitutional Vitals: Vital Signs Temp Pulse Resp BP Pulse Ox 98.2 F 69 20 135/90 97 07/03/18 15:31 07/03/18 07:34 07/03/18 15:31 07/03/18 15:31 07/03/18 15:31 Period Temp Pulse Resp BP Sys/Pinzon Pulse Ox Last 24 Hr 97.1 F-99.6 F 69-83 16-20 112-159/77-104 91-99 Intake and Output 07/03/18 07/03/18 07/03/18 05:59 13:59 21:59 Intake Total 8026 083 7448 Output Total 707 799 0486 Balance 915 -485 620 Intake & Output: Intake & Output 07/03/18 07/03/18 07/03/18 05:59 13:59 21:59 Intake Total 7996 332 3895 Output Total 815 520 7481 Balance 915 485 620 Intake: IV 5054 182 1105 Dextrose 5%-1/2Ns W/20Meq KCl 1 1000 ,000 ml @ 75 mls/hr IV Q13H [facility] Rx#:[id number] Oral 50 520 Output: Void Amount 923 189 2181 Other: Meal Lunch Percent of Meal Consumed 100% Feeding Ability Independent Urine Appearance Clear Clear Urine Color Dark Yellow Dark Yellow Urine Odor Normal # Voids 1 # Bowel Movements 0 0 Exam: General: Alert, Awake, No acute Distress Eyes/N/T: EOMI, Head/Neck: neck supple, CV: RRR, No murmurs, Pulm: Clear b/l, no wheezing/rhonchi/rales Abd: Ext: no clubbing/cyanosis/edema Neuro: Alert, no focal deficits, moves all extremities Skin: warm/dry Medical - PN: Obj Da - Labs CBC & Chem 7: 07/03/18 03:45 07/03/18 03:45 Labs: Abnormal Lab Results 07/03/18 07/03/18 07/02/18 03:45 03:45 03:40 RBC Hgb 10.9 L Hct 35.4 L MCV 69.0 L MCH 21.2 L MCHC 30.7 L RDW 15.7 H Gran % Lymph % (Auto) Gran # Lymph # (Auto) Carbon Dioxide 21 L BUN 5 L 5 L Creatinine 0.5 L 0.5 L Glucose 166 H 142 H Calcium 8.1 L 7.8 L Phosphorus 1.9 L 1.6 L GGT 173 H 147 H Albumin 3.0 L Albumin/Globulin Ratio 0.9 L 0.9 L 07/02/18 07/01/18 07/01/18 03:40 03:50 03:50 RBC 5.47 H 5.53 H Hgb 11.5 L 11.5 L Hct MCV 68.4 L 68.6 L MCH 21.0 L 20.9 L MCHC 30.7 L 30.4 L RDW 15.9 H 16.3 H Gran % 85.2 H Lymph % (Auto) 9.2 L Gran # 8.6 H Lymph # (Auto) 0.9 L Carbon Dioxide BUN 4 L Creatinine Glucose Calcium 7.9 L Phosphorus 1.6 L GGT 133 H Albumin Albumin/Globulin Ratio 0.9 L Meds: Medications Aspirin (Aspirin) 81 mg PO DAILY [facility] Atorvastatin Calcium (Lipitor) 40 mg PO HS [facility] Celecoxib (Celebrex) 200 mg PO BIDP PRN PRN Reason: Pain Last Admin: 07/03/18 16:13 Dose: 200 mg Documented by: Dextrose (Dextrose 50%) 0 ml IV UD PRN PRN Reason: Hypoglycemia Diagnostic Test (Pha) (Accu-Chek) 1 each FS ACHS [facility] Last Admin: 07/03/18 16:15 Dose: 1 each Documented by: Diphenhydramine HCl (Benadryl) 50 mg IV Q4HP PRN PRN Reason: Allergic Symptoms Last Admin: 07/03/18 12:15 Dose: 50 mg Documented by: Fentanyl (Sublimaze) 25 mcg IV Q1HP PRN PRN Reason: PAIN LEVEL > 6 Last Admin: 07/03/18 12:16 Dose: 25 mcg Documented by: Fentanyl (Duragesic) 25 mcg TOPICAL Q72H [facility] Potassium Chloride/Dextrose/Sod Cl (Dextrose 5%-1/2ns W/20meq Kcl) 1,000 mls @ 75 mls/hr IV Q13H [facility] Last Admin: 07/03/18 16:23 Dose: 75 mls/hr Documented by: Levofloxacin (Levaquin) 750 mg in 150 mls @ 100 mls/hr IV Q24H [facility]; Protocol Metronidazole (Flagyl) 500 mg in 100 mls @ 100 mls/hr IV Q8H [facility]; Protocol Last Infusion: 07/03/18 14:55 Dose: Infused Documented by: Acetaminophen (Ofirmev) 650 mg in 65 mls @ 130 mls/hr IV Q6H [facility] Last Admin: 07/03/18 16:14 Dose: 130 mls/hr Documented by: Insulin Human Lispro (Humalog) 0 unit SQ ACHS [facility]; Protocol Last Admin: 07/03/18 16:26 Dose: 1 unit Documented by: Lorazepam (Ativan) 0.5 mg IV Q2HP PRN PRN Reason: ANXIETY/SEDATION Melatonin (Melatonin 3mg Tablet) 3 mg PO HS [facility] Metoclopramide HCl (Reglan) 10 mg IV Q6 [facility] Last Admin: 07/03/18 16:13 Dose: 10 mg Documented by: Olmesartan (Benicar) 40 mg PO DAILY [facility] Ondansetron HCl (Zofran) 4 mg IV Q4HP PRN PRN Reason: Nausea And Vomiting Last Admin: 07/03/18 12:15 Dose: 4 mg Documented by: Pantoprazole Sodium (Protonix) 40 mg IV BIDAC [facility] Last Admin: 07/03/18 16:13 Dose: 40 mg Documented by: Sodium Chloride (Saline Flush) 10 ml IV Q8 [facility] Last Admin: 07/03/18 13:18 Dose: 10 ml Documented by: Medical - PN: A/P - Time Spent With Patient Total time spent is greater than 50% in coordination of care (as documented) at patient's floor/unit and/or counseling patient: - Narrative A/P Narrative: A: *Bowel perforation: -retroperitoneal perforation likely, s/p ERCP, patient is being followed by Dr Berry and his team. Dr Simon also helping out in managemen t. -CT did not show any abscess or fluid accumulation, no contrast in leaking from the bowel. *Abdominal pain: -NG discontinued *Aspiration pneumonitis *DM: *HTN/HLD: *Hypophosphatemia: P: -Bowel management per GI -levofloxacin and flagyl, -strongly encouraged incentive spirometer. -IV tylenol scheduled, -TDD fentanyl at 25mcg, pt has needed IV fentanyl , does not have much of an allergic reaction to these meds, Started on celebrex -IV ppi, now switch drip to bid -Clear liquid diet per GI -Replete electrolytes -Home health care at least upon discharge -ppx: [facility] Medical - PN: Qual - VTE Deep Vein Thrombosis/Pulmonary Embolism Present on Admission: No
--- NOTE | 2018-07-03 17:23 | Discharge Summary ---
Medical - DS: Prov Patient information: Note initiated : 07/03/18 at 5:19 pm Service Date, if different from initiated Date: [] Patient: Hui Louis 57 y/o F admitted on 06/29/18 for ERCP. Chief Complaint: [] Date of admission: 06/29/18 12:12 Discharge date: 07/04/18 Primary care physician: Ursula Avalos Consults: 07/01/18 12:15 Consult to Physician [CONS] Routine Comment: Consulting Provider: Rusty Simon Reason For Exam: Physician to Consult Medical - DS: Meds - Discharge Medications Prescriptions: Acetaminophen [8Hr Muscle Aches-Pain] 650 mg PO QIDP PRN #40 tablet.er PRN Reason: Pain Celecoxib [Celebrex] 100 mg PO BIDP PRN #40 cap PRN Reason: Pain Metoclopramide [Reglan] 10 mg PO ACHS #40 tab Active and Home Medications: Home Medications atorvastatin 40 mg tablet 40 mg PO .Q pm #30 tab 05/06/17 [Rx Confirmed 06/28/18 Last Taken 06/26/18 2100] cholecalciferol (vitamin D3) 5,000 unit capsule 5,000 unit PO QDAY #90 cap 05/06/17 [Rx Confirmed 06/28/18 Last Taken 06/26/18 2100] hydrochlorothiazide 25 mg tablet 25 mg PO QDAY #30 tab 05/06/17 [Rx Confirmed 06/28/18 Last Taken 06/26/18 2100] metformin ER 1,000 mg tablet,extended release 24hr 2,000 mg PO .Q pm #60 tab 05/06/17 [Rx Confirmed 06/28/18 Last Taken 06/26/182099] aspirin 81 mg tablet,delayed release 81 mg PO QDAY #90 tab 05/10/17 [Rx Confirmed 06/28/18 Last Taken 06/25/18 21:00] melatonin 5 mg capsule 5 mg PO QHS 06/15/17 [History Confirmed 06/28/18 Last Taken 06/26/18 2100] calcium carbonate 500 mg calcium (1,250 mg) tablet 500 mg PO BID #60 tab 02/15/18 [Rx Confirmed 06/28/18 Last Taken 06/26/18 2100] telmisartan 40 mg tablet 80 mg PO QDAY #60 tab 04/21/18 [Rx Confirmed 06/28/18 Last Taken 06/26/18 2100] sitagliptin 100 mg tablet 100 mg PO QDAY #30 tab 04/26/18 [Rx Confirmed 06/28/18 Last Taken 06/28/18 08:00] Blood-Glucose Meter [Accu-Chek Yesy Connect] 0 appful .ROUTE .MEDSUPPLY 05/17/18 [History Confirmed 06/28/18 Last Taken Unknown] glimepiride 4 mg tablet 8 mg PO QAM #60 tab 05/19/18 [Rx Confirmed 06/28/18 Last Taken 06/28/18 08:00] blood sugar diagnostic strips 0 strip .ROUTE .MEDSUPPLY #50 each MDD 3 times daily 05/31/18 [Rx Confirmed 06/28/18 Last Taken Unknown] Home Medications atorvastatin 40 mg tablet 40 mg PO .Q pm #30 tab 05/06/17 [Rx Confirmed 06/28/18 Last Taken 06/26/18 2100] cholecalciferol (vitamin D3) 5,000 unit capsule 5,000 unit PO QDAY #90 cap 05/06/17 [Rx Confirmed 06/28/18 Last Taken 06/26/18 2100] hydrochlorothiazide 25 mg tablet 25 mg PO QDAY #30 tab 05/06/17 [Rx Confirmed 06/28/18 Last Taken 06/26/18 2100] metformin ER 1,000 mg tablet,extended release 24hr 2,000 mg PO .Q pm #60 tab 05/06/17 [Rx Confirmed 06/28/18 Last Taken 06/26/18 2100] aspirin 81 mg tablet,delayed release 81 mg PO QDAY #90 tab 05/10/17 [Rx Confirmed 06/28/18 Last Taken 06/25/18 21:00] melatonin 5 mg capsule 5 mg PO QHS 06/15/17 [History Confirmed 06/28/18 Last Taken 06/26/18 2100] calcium carbonate 500 mg calcium (1,250 mg) tablet 500 mg PO BID #60 tab 02/15/18 [Rx Confirmed 06/28/18 Last Taken 06/26/18 2100] telmisartan 40 mg tablet 80 mg PO QDAY #60 tab 04/21/18 [Rx Confirmed 06/28/18 Last Taken 06/26/18 2100] sitagliptin 100 mg tablet 100 mg PO QDAY #30 tab 04/26/18 [Rx Confirmed 06/28/18 Last Taken 06/28/18 08:00] Blood-Glucose Meter [Accu-Chek Yesy Connect] 0 appful .ROUTE .MEDSUPPLY 05/17/18 [History Confirmed 06/28/18 Last Taken Unknown] glimepiride 4 mg tablet 8 mg PO QAM #60 tab 05/19/18 [Rx Confirmed 06/28/18 Last Taken 06/28/18 08:00] blood sugar diagnostic strips 0 strip .ROUTE .MEDSUPPLY #50 each MDD 3 times daily 05/31/18 [Rx Confirmed 06/28/18 Last Taken Unknown] Acetaminophen [8Hr Muscle Aches-Pain] 650 mg PO QIDP PRN #40 tablet.er 07/03/18 [Rx Last Taken Unknown] Celecoxib [Celebrex] 100 mg PO BIDP PRN #40 cap 07/03/18 [Rx Last Taken Unknown] Metoclopramide [Reglan] 10 mg PO ACHS #40 tab 07/04/18 [Rx Last Taken Unknown] Medical - DS: Hosp Hospital course: Mr. Louis is a 57 year old F Ms. Louis is a 57 year old F with h/o DM, h/o ERCP in the past, admitted to the hospital s/p ERCP. The patient had abdominal pain, dialated cbd, and needed repeat ERCP, she underwent the procedure and unfortunately developed perforation of the bowel postprocedure. The patient has significant abdominal pain throughout her abdomen, also has some chest congestion. The patient is being admitted to the hospital for management of pain as well as bowel perforation. GI is following this patient. Medicine has been asked to help with medical management of chronic medical conditions as well as pain management. On my evaluation patient was quite drowsy, had received Benadryl as well as Dilaudid for pain management along with Ativan. Patient besides abdominal pain denies any other acute complaints. I reviewed her allergy list it looks like patient is allergic to all pain medications she reports that she has itching w ith all pain medications. On her allergy list she is also allergic to Tylenol, [as part of Vicodin] She denies any allergies suggestive of anaphylaxis, angioedema or respiratory distress. Itching is her only allergic symptoms. 06/30 Pt seen examined, no acute issues,k pain control is better compared to yesterday itching symptoms better with fentanyl than other opiates analogues Pt X ray shows bibasilar infiltrates/atelectasiss pt is no antibiotics NG tube has some bloody suction, IV PPI ongoing as per GI GI team is predminanty driving management in this patient 07/01 patient seen examined, no acute issues, still has abodminal pain, nausea better no bowel movements, did not pass gas on IV ppi ggt as per GI Plan for CT today as per GI 07/02 patient seen examined, no acute issues electrolyte stable Left side pain in the scapular region since yesterday, still has abdominal pain, needed IV fentanyl twice, no flatus or bowel movements pt not ambulating much 07/03 patient seen examined,feels better passed gas yesterday and this morning, no bowel movements yet pain control is reasonable, tolerating clear liquids well. xfer to med surg status 07/04 Doing and feeling better and ready for discharge, stable for discharge Discharge diagnosis: Bowel perforation aspiration pneumonitis diabetes hypertension - Time Spent with Patient Total time spent providing and/or coordinating discharge services: Greater than 30 minutes Medical - DS: Exam - Constitutional Vitals: Vital Signs Temp Pulse Pulse Resp BP BP Pulse Ox 07/03/18 15:31 98.2 F 20 135/90 97 07/03/18 12:00 99.6 F H 16 112/79 97 07/03/18 09:32 98.4 F 139/89 94 07/03/18 07:34 69 18 95 07/03/18 05:00 75 92 07/03/18 04:00 76 95 07/03/18 03:49 97.8 F 75 16 137/81 95 07/03/18 03:00 74 95 07/03/18 02:00 74 96 07/03/18 01:00 74 96 07/03/18 00:24 97.1 F 74 16 121/77 97 07/03/18 00:00 77 96 07/02/18 23:00 81 94 07/02/18 22:00 80 92 07/02/18 21:00 83 91 07/02/18 20:00 97.7 F 82 18 148/92 99 07/02/18 19:53 97.7 F 80 18 148/92 99 07/02/18 19:51 80 159/104 97 07/02/18 19:50 81 157/104 97 07/02/18 18:44 78 95 Intake and Output 07/03/18 07/03/18 07/03/18 05:59 13:59 21:59 Intake Total 6574 560 4437 Output Total 238 922 2766 Balance 915 -119 620 Intake: IV 6477 282 4876 Dextrose 5%-1/2Ns W/20Meq KCl 1 1000 ,000 ml @ 75 mls/hr IV Q13H MARY Rx#:[id number] Oral 50 520 Output: Void Amount 001 413 4822 Other: Meal Lunch Percent of Meal Consumed 100% Feeding Ability Independent Urine Appearance Clear Clear Urine Color Dark Yellow Dark Yellow Urine Odor Normal # Voids 1 # Bowel Movements 0 0 Medical - DS: Data Labs on day of discharge: Labs from last 24 hours 07/03/18 07/03/18 03:45 03:45 WBC 7.2 RBC 5.13 Hgb 10.9 L Hct 35.4 L MCV 69.0 L MCH 21.2 L MCHC 30.7 L RDW 15.7 H Plt Count 294 MPV 7.8 Gran % 67.9 Lymph % (Auto) 21.8 [place]rie % (Auto) 6.4 Eos % (Auto) 3.4 Baso % (Auto) 0.5 Gran # 4.9 Lymph # (Auto) 1.6 [place]rie # (Auto) 0.5 Eos # (Auto) 0.2 Baso # (Auto) 0 Sodium 137 Potassium 3.4 Chloride 103 Carbon Dioxide 25 Anion Gap 9.0 BUN 5 L Creatinine 0.5 L GFR Calculation 108 Glucose 166 H Uric Acid 3.4 Calcium 8.1 L Phosphorus 1.9 L Magnesium 2.0 Total Bilirubin 0.4 Direct Bilirubin < 0.2 GGT 173 H AST 27 ALT 19 Alkaline Phosphatase 77 Lactate Dehydrogenase 149 Total Protein 6.4 Albumin 3.0 L Globulin 3.4 Albumin/Globulin Ratio 0.9 L Triglycerides 101 Medical - DS: A/P - Patient/Caregiver Discharge Instructions Activity: increase activity as tolerated Diet: Consistent Carbohydrate Prescriptions: Acetaminophen [8Hr Muscle Aches-Pain] 650 mg PO QIDP PRN #40 tablet.er PRN Reason: Pain Celecoxib [Celebrex] 100 mg PO BIDP PRN #40 cap PRN Reason: Pain fentaNYL [Fentanyl] 25 mcg TD Q72 #2 patch.td72 - Follow up Plan Follow up with: Chirinos,Ursula Altmiller, [employer] [Nurse Practitioner] - Disposition: Home Health Service Prognosis: Fair Rehab Potential: Fair Medical - DS: Qual - VTE Deep Vein Thrombosis/Pulmonary Embolism Present on Admission: No
[2018-07-03] MEDS ORDERED: MELATONIN 3 MG TABLET PO SCH (21:00)
[2018-07-03] MEDS ORDERED: ATORVASTATIN 20 MG TABLET PO SCH (21:00)
[2018-07-04] MEDS: METOCLOPRAMIDE 10 MG/2 ML VIAL IV SCH ×3 (00:01→12:25)
[2018-07-04] MEDS: DEXTROSE 5%-1/2NS W/20MEQ KCL 1,000 ML IV SCH (03:14)
[2018-07-04] MEDS: diphenhydrAMINE 50 MG/ML VIAL IV PRN ×2 (03:23→14:09)
[2018-07-04] MEDS: fentaNYL 100 MCG/2 ML VIAL IV PRN (03:23)
[2018-07-04] MEDS: ACETAMINOPHEN 650 MG/65 ML BOTTLE IV SCH ×2 (03:59→09:47)
[2018-07-04] MEDS: metroNIDAZOLE 500 MG/100 ML BAG IV SCH (05:30)
[2018-07-04] MEDS: 0.9 % SODIUM CHLORIDE 10 ML SYRINGE IV SCH ×2 (05:31→14:09)
[2018-07-04 06:17] LABS: Basophils # (Auto) 0 K/mcL (0.0-0.3); Basophils % (Auto) 0.6 % (0.0-2.0); Eosinophils # (Auto) 0.3 K/mcL (0.0-0.7); Eosinophils % (Auto) 5.4 % (0.0-7.0); Granulocytes % (Auto) 53.6 % (38.0-78.0); Lymphocytes # (Auto) 2.1 K/mcL (1.5-4.8); Lymphocytes % (Auto) 34.7 % (15.5-49.0); Mean Cell Volume 68.6 fL (80.0-100.0); Mean Corpuscular HGB Conc 30.9 g/dL (31.0-36.0); Monocytes # (Auto) 0.4 K/mcL (0.1-0.9); Monocytes % (Auto) 5.7 % (1.0-12.0); Platelet Count 323 K/mcL (140-440); RBC 4.82 M/mcL (4.00-5.20); Red Cell Distribution Width 16.5 % (11.5-14.5)
[2018-07-04 06:35] LABS: Bilirubin,Direct < 0.2 mg/dL (0.0-0.3); Blood Urea Nitrogen 5 mg/dl (6-20); Gamma Glutamyl Transpeptidase 182 U/L (5-36); Uric Acid 3.5 mg/dL (2.5-8.0)
[2018-07-04 06:36] LABS: ALT/SGPT 22 U/l (0-40); Albumin 2.8 gm/dL (3.2-5.2); Albumin/Globulin Ratio 0.9 (1.0-2.3); Alkaline Phosphatase 88 U/L (39-117)
[2018-07-04] MEDS: PANTOPRAZOLE 40 MG VIAL IV SCH (06:41)
[2018-07-04] MEDS ORDERED: fentaNYL 100 MCG/2 ML VIAL IV PRN (07:00)
--- NOTE | 2018-07-04 07:01 | Internal Med Progress Note ---
Medical - PN: Subj Patient information: Note initiated : 07/04/18 at 6:59 am Service Date, if different from initiated Date: [] Patient: Hui Louis a 57 y/o F admitted on 06/29/18 for ERCP. Chief Complaint: [] Interval history: Ms. Louis is a 57 year old F with h/o DM, h/o ERCP in the past, admitted to the hospital s/p ERCP. The patient had abdominal pain, dialated cbd, and needed repeat ERCP, she underwent the procedure and unfortunately developed perforation of the bowel postprocedure. The patient has significant abdominal pain throughout her abdomen, also has some chest congestion. The patient is being ad mitted to the hospital for management of pain as well as bowel perforation. GI is following this patient. Medicine has been asked to help with medical management of chronic medical conditions as well as pain management. On my evaluation patient was quite drowsy, had received Benadryl as well as D ilaudid for pain management along with Ativan. Patient besides abdominal pain denies any other acute complaints. I reviewed her allergy list it looks like patient is allergic to all pain medications she reports that she has itching with all pain medications. On her allergy list she is also allergic to Tylenol, [as part of Vicodin] She denies any allergies suggestive of anaphylaxis, angioedema or respiratory distress. Itching is her only allergic symptoms. 06/30 Pt seen examined, no acute issues,k pain control is better compared to yesterday itching symptoms better with fentanyl than other opiates analogues Pt X ray shows bibasilar infiltrates/atelectasiss pt is no antibiotics NG tube has some bloody suction, IV PPI ongoing as per GI GI team is predminanty driving management in this patient 07/01 patient seen examined, no acute issues, still has abodminal pain, nausea better no bowel movements, did not pass gas on IV ppi ggt as per GI Plan for CT today as per GI 07/02 patient seen examined, no acute issues electrolyte stable Left side pain in the scapular region since yesterday, still has abdominal pain, needed IV fentanyl twice, no flatus or bowel movements pt not ambulating much 07/03 patient seen examined,feels better passed gas yesterday and this morning, no bowel movements yet pain control is reasonable, tolerating clear liquids well. xfer to med surg status 07/04 Sitting up in chair appears comfortable. No bowel movement yet. Slept on and off throughout the night. Abdominal pain improving. Walks with physical therapy did have some nausea afterwards but no vomiting. - Constitutional Vitals: Vital Signs Temp Pulse Resp BP Pulse Ox 98.1 F 67 20 123/87 94 07/04/18 04:00 07/04/18 04:00 07/04/18 04:00 07/04/18 04:00 07/04/18 04:00 Period Temp Pulse Resp BP Sys/Pinzon Pulse Ox Last 24 Hr 97.5 F-99.6 F 67-83 16-20 103-141/68-92 93-97 Intake and Output 07/03/18 07/04/18 07/04/18 21:59 05:59 13:59 Intake Total 1685 590 Output Total 1000 1250 Balance 685 -660 Weight 76.521 kg Intake & Output: Intake & Output 07/03/18 07/04/18 07/04/18 21:59 05:59 13:59 Intake Total 1685 590 Output Total 1000 1250 Balance 685 -660 Weight 76.521 kg Intake: IV 1165 230 Oral 520 360 Output: Void Amount 1000 1250 Other: Meal Lunch Percent of Meal Consumed 100% Feeding Ability Independent # Voids 1 # Bowel Movements 0 Exam: General: Alert, Awake, No acute Distress Eyes/N/T: EOMI, Head/Neck: neck supple, CV: RRR, No murmurs, Pulm: Clear b/l, no wheezing/rhonchi/rales Abd: Mild tenderness to palpation right upper quadrant, positive bowel sounds, soft Ext: no clubbing/cyanosis/edema Neuro: Alert, no focal deficits, moves all extremities Skin: warm/dry Medical - PN: Obj Da - Labs CBC & Chem 7: 07/04/18 03:50 07/04/18 03:50 Labs: Abnormal Lab Results 07/04/18 07/04/18 07/03/18 03:50 03:50 03:45 RBC Hgb 10.2 L Hct 33.1 L MCV 68.6 L MCH 21.2 L MCHC 30.9 L RDW 16.5 H Gran % Lymph % (Auto) Gran # Lymph # (Auto) Carbon Dioxide BUN 5 L 5 L Creatinine 0.5 L Glucose 170 H 166 H Calcium 8.1 L 8.1 L Phosphorus 2.6 L 1.9 L GGT 182 H 173 H Albumin 2.8 L 3.0 L Albumin/Globulin Ratio 0.9 L 0.9 L 07/03/18 07/02/18 07/02/18 03:45 03:40 03:40 RBC 5.47 H Hgb 10.9 L 11.5 L Hct 35.4 L MCV 69.0 L 68.4 L MCH 21.2 L 21.0 L MCHC 30.7 L 30.7 L RDW 15.7 H 15.9 H Gran % 85.2 H Lymph % (Auto) 9.2 L Gran # 8.6 H Lymph # (Auto) 0.9 L Carbon Dioxide 21 L BUN 5 L Creatinine 0.5 L Glucose 142 H Calcium 7.8 L Phosphorus 1.6 L GGT 147 H Albumin Albumin/Globulin Ratio 0.9 L 07/01/18 07/01/18 03:50 03:50 RBC 5.53 H Hgb 11.5 L Hct MCV 68.6 L MCH 20.9 L MCHC 30.4 L RDW 16.3 H Gran % Lymph % (Auto) Gran # Lymph # (Auto) Carbon Dioxide BUN 4 L Creatinine Glucose Calcium 7.9 L Phosphorus 1.6 L GGT 133 H Albumin Albumin/Globulin Ratio 0.9 L Meds: Medications Aspirin (Aspirin) 81 mg PO DAILY [facility] Atorvastatin Calcium (Lipitor) 40 mg PO HS [facility] Last Admin: 07/03/18 20:16 Dose: 40 mg Documented by: Celecoxib (Celebrex) 200 mg PO BIDP PRN PRN Reason: Pain Last Admin: 07/03/18 16:13 Dose: 200 mg Documented by: Dextrose (Dextrose 50%) 0 ml IV UD PRN PRN Reason: Hypoglycemia Diagnostic Test (Pha) (Accu-Chek) 1 each FS ACHS [facility] Last Admin: 07/04/18 06:41 Dose: 1 each Documented by: Diphenhydramine HCl (Benadryl) 50 mg IV Q4HP PRN PRN Reason: Allergic Symptoms Last Admin: 07/04/18 03:23 Dose: 50 mg Documented by: Fentanyl (Sublimaze) 25 mcg IV Q1HP PRN PRN Reason: PAIN LEVEL > 6 Last Admin: 07/04/18 03:23 Dose: 25 mcg Documented by: Fentanyl (Duragesic) 25 mcg TOPICAL Q72H [facility] Potassium Chloride/Dextrose/Sod Cl (Dextrose 5%-1/2ns W/20meq Kcl) 1,000 mls @ 75 mls/hr IV Q13H [facility] Last Admin: 07/04/18 03:14 Dose: Not Given Documented by: Levofloxacin (Levaquin) 750 mg in 150 mls @ 100 mls/hr IV Q24H [facility]ARY; Protocol Metronidazole (Flagyl) 500 mg in 100 mls @ 100 mls/hr IV Q8H [facility]; Protocol Last Admin: 07/04/18 05:30 Dose: 100 mls/hr Documented by: Acetaminophen (Ofirmev) 650 mg in 65 mls @ 130 mls/hr IV Q6H [facility] Last Infusion: 07/04/18 04:29 Dose: Infused Documented by: Insulin Human Lispro (Humalog) 0 unit SQ ACHS [facility]; Protocol Last Admin: 07/03/18 20:23 Dose: 1 unit Documented by: Lorazepam (Ativan) 0.5 mg IV Q2HP PRN PRN Reason: ANXIETY/SEDATION Melatonin (Melatonin 3mg Tablet) 3 mg PO HS [facility] Last Admin: 07/03/18 20:16 Dose: 3 mg Documented by: Metoclopramide HCl (Reglan) 10 mg IV Q6 [facility] Last Admin: 07/04/18 05:31 Dose: 10 mg Documented by: Olmesartan (Benicar) 40 mg PO DAILY [facility] Ondansetron HCl (Zofran) 4 mg IV Q4HP PRN PRN Reason: Nausea And Vomiting Last Admin: 07/03/18 17:27 Dose: 4 mg Documented by: Pantoprazole Sodium (Protonix) 40 mg IV BIDAC [facility] Last Admin: 07/04/18 06:41 Dose: 40 mg Documented by: Sodium Chloride (Saline Flush) 10 ml IV Q8 [facility] Last Admin: 07/04/18 05:31 Dose: Not Given Documented by: Medical - PN: A/P - Time Spent With Patient Total time spent is greater than 50% in coordination of care (as documented) at patient's floor/unit and/or counseling patient: - Narrative A/P Narrative: A: *Bowel perforation: -retroperitoneal perforation likely, s/p ERCP, patient is b eing followed by Dr Berry and his team. Dr Simon also helping out in management. -CT did not show any abscess or fluid accumulation, no contrast is leaking from the bowel. *Abdominal pain: Improving -NG discontinued *Aspiration pneumonitis *DM: *HTN/HLD: *Hypophosphatemia: P: -Bowel management per GI -levofloxacin and flagyl, -strongly encouraged incentive spirometer. -IV tylenol scheduled, -TDD fentanyl at 25mcg, pt has needed IV fentanyl , does not have much of an allergic reaction to these meds, Started on celebrex -IV ppi, now switch drip to bid -full liquid diet per GI and tolerating -Replete electrolytes -Home health care at least upon discharge -ppx: [facility] Medical - PN: Qual - VTE Deep Vein Thrombosis/Pulmonary Embolism Present on Admission: No
[2018-07-04] MEDS ORDERED: LEVOFLOXACIN 750 MG/150 ML BAG IV SCH (09:00)
[2018-07-04] MEDS ORDERED: ASPIRIN 81 MG TAB.CHEW PO SCH (09:00)
[2018-07-04] MEDS ORDERED: OLMESARTAN MEDOXOMIL 20 MG TABLET PO SCH (09:00)
[2018-07-04] MEDS: INSULIN LISPRO 1 UNIT/0.01 ML UNIT SQ SCH ×2 (09:02→12:25)
--- NOTE | 2018-07-04 09:31 | XRay Report ---
CLINICAL INFORMATION: History of dilated common bile duct TECHNIQUE: ERCP was performed by Dr. Berry. 6 minutes 28 seconds fluoroscopy utilized. Spot films were obtained with opacification of the common bile duct and common hepatic duct. A common bile duct stent was placed. COMPARISON: CT scan dated 06/10/2018 FINDINGS: Spot films demonstrate opacification of the common bile duct and common hepatic duct. No intraluminal filling defects. No stricture. There is no detectable mass. A stent was placed within the common bile duct. IMPRESSION: ERCP and common bile duct stent placement as above Interpreted and Authenticated by: Darian Caballero 07/04/18
[2018-07-04] MEDS ORDERED: fentaNYL 25 MCG PATCH TOPICAL SCH (10:00)
--- NOTE | 2018-07-04 12:24 | Internal Med Progress Note ---
Medical - PN: Subj Patient information: Note initiated : 07/04/18 at 12:21 pm Service Date, if different from initiated Date: [] Patient: Hui Louis a 57 y/o F admitted on 06/29/18 for ERCP. Chief Complaint: [small bowel perforation after ERCP] Interval history: Ms. 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 Cannulation was difficult and accomplished only after pancreatic duct was placed. Papillotomy was performed and a biliary stent was also placed. Several hours after papillotomy, patient became short of breath and complained of abdominal pain and was discovered to have a retroperitoneal perforation. She developed ileus. NGT has since been discontinued. Patient now passing flatus, but no BM. Tolerating full liquid diet. Wants to stop Fentanyl patch because it causes "hot flashes". - Constitutional Vitals: Vital Signs Temp Pulse Resp BP Pulse Ox 99.0 F 76 16 129/80 94 07/04/18 08:00 07/04/18 08:00 07/04/18 08:00 07/04/18 08:00 07/04/18 08:00 Period Temp Pulse Resp BP Sys/Pinzon Pulse Ox Last 24 Hr 97.5 F-99.0 F 67-83 16-20 103-141/68-92 93-97 Intake and Output 07/03/18 07/04/18 07/04/18 21:59 05:59 13:59 Intake Total 1685 1405 265 Output Total 1000 1250 400 Balance 685 155 -135 Weight 168 lb 11.2 oz Intake & Output: Intake & Output 07/03/18 07/04/18 07/04/18 21:59 05:59 13:59 Intake Total 1685 1405 265 Output Total 1000 1250 400 Balance 685 155 -135 Weight 168 lb 11.2 oz Intake: IV 1165 1045 265 Oral 520 360 Output: Void Amount 1000 1250 400 Other: Meal Lunch Percent of Meal Consumed 100% Feeding Ability Independent Urine Appearance Clear Urine Color Brown # Voids 1 # Bowel Movements 0 General appearance: average body habitus, cooperative, no acute distress - Head Head exam: Present: atraumatic, normal inspection, normocephalic - Neck Neck exam: Present: normal inspection Additional comments: no crepitus - Respiratory Additional comments: slightly decreased bases. Crackles improved - Cardiovascular Cardiovascular exam: Present: normal rate and rhythm. Absent: diastolic murmur, systolic murmur - GI/Abdominal GI/Abdominal exam: Present: normal bowel sounds, soft. Absent: mass, organomegaly, tenderness - Neurological Exam Neurological exam: Present: alert - Psychiatric Psychiatric exam: Present: normal affect, normal mood - Skin Skin exam: Present: dry, normal color, warm Medical - PN: Obj Da - Labs CBC & Chem 7: 07/04/18 03:50 07/04/18 03:50 Labs: Abnormal Lab Results 07/04/18 07/04/18 07/03/18 03:50 03:50 03:45 RBC Hgb 10.2 L Hct 33.1 L MCV 68.6 L MCH 21.2 L MCHC 30.9 L RDW 16.5 H Gran % Lymph % (Auto) Gran # Lymph # (Auto) Carbon Dioxide BUN 5 L 5 L Creatinine 0.5 L Glucose 170 H 166 H Calcium 8.1 L 8.1 L Phosphorus 2.6 L 1.9 L GGT 182 H 173 H Albumin 2.8 L 3.0 L Albumin/Globulin Ratio 0.9 L 0.9 L 07/03/18 07/02/18 07/02/18 03:45 03:40 03:40 RBC 5.47 H Hgb 10.9 L 11.5 L Hct 35.4 L MCV 69.0 L 68.4 L MCH 21.2 L 21.0 L MCHC 30.7 L 30.7 L RDW 15.7 H 15.9 H Gran % 85.2 H Lymph % (Auto) 9.2 L Gran # 8.6 H Lymph # (Auto) 0.9 L Carbon Dioxide 21 L BUN 5 L Creatinine 0.5 L Glucose 142 H Calcium 7.8 L Phosphorus 1.6 L GGT 147 H Albumin Albumin/Globulin Ratio 0.9 L Meds: Medications Aspirin (Aspirin) 81 mg PO DAILY [facility] Last Admin: 07/04/18 09:02 Dose: 81 mg Documented by: Atorvastatin Calcium (Lipitor) 40 mg PO HS [facility] Last Admin: 07/03/18 20:16 Dose: 40 mg Documented by: Celecoxib (Celebrex) 200 mg PO BIDP PRN PRN Reason: Pain Last Admin: 07/03/18 16:13 Dose: 200 mg Documented by: Dextrose (Dextrose 50%) 0 ml IV UD PRN PRN Reason: Hypoglycemia Diagnostic Test (Pha) (Accu-Chek) 1 each FS [facility] Last Admin: 07/04/18 06:41 Dose: 1 each Documented by: Diphenhydramine HCl (Benadryl) 50 mg IV Q4HP PRN PRN Reason: Allergic Symptoms Last Admin: 07/04/18 03:23 Dose: 50 mg Documented by: Fentanyl (Duragesic) 25 mcg TOPICAL Q72H [facility] Last Admin: 07/04/18 09:47 Dose: 25 mcg Documented by: Fentanyl (Sublimaze) 25 mcg IV Q6HP PRN PRN Reason: PAIN LEVEL > 6 Levofloxacin (Levaquin) 750 mg in 150 mls @ 100 mls/hr IV Q24H [facility]; Protocol Last Infusion: 07/04/18 10:02 Dose: 0 mls/hr Documented by: Metronidazole (Flagyl) 500 mg in 100 mls @ 100 mls/hr IV Q8H [facility]; Protocol Last Infusion: 07/04/18 06:30 Dose: Infused Documented by: Acetaminophen (Ofirmev) 650 mg in 65 mls @ 130 mls/hr IV Q6H [facility] Last Infusion: 07/04/18 10:28 Dose: Infused Documented by: Insulin Human Lispro (Humalog) 0 unit SQ [facility]; Protocol Last Admin: 07/04/18 09:02 Dose: 3 unit Documented by: Lorazepam (Ativan) 0.5 mg IV Q2HP PRN PRN Reason: ANXIETY/SEDATION Melatonin (Melatonin 3mg Tablet) 3 mg PO HS [facility] Last Admin: 07/03/18 20:16 Dose: 3 mg Documented by: Metoclopramide HCl (Reglan) 10 mg IV Q6 [facility] Last Admin: 07/04/18 05:31 Dose: 10 mg Documented by: Olmesartan (Benicar) 40 mg PO DAILY [facility] Last Admin: 07/04/18 09:02 Dose: 40 mg Documented by: Ondansetron HCl (Zofran) 4 mg IV Q4HP PRN PRN Reason: Nausea And Vomiting Last Admin: 07/03/18 17:27 Dose: 4 mg Documented by: Pantoprazole Sodium (Protonix) 40 mg IV BIDAC [facility] Last Admin: 07/04/18 06:41 Dose: 40 mg Documented by: Sodium Chloride (Saline Flush) 10 ml IV Q8 [facility] Last Admin: 07/04/18 05:31 Dose: Not Given Documented by: Medical - PN: A/P - Time Spent With Patient Total time spent is greater than 50% in coordination of care (as documented) at patient's floor/unit and/or counseling patient: less than 15 minutes (1) Small bowel perforation Status: Resolved Assessment and plan: Resolved. Patient ready for discharge. Will follow up with LASHONDA Alves as outpatient 07/06 4:30pm. Will DC fentanyl. Continue tylenol, celebrex, reglan as outpatient. Current Visit: Yes (2) Ileus Status: Resolved Assessment and plan: Resolved. Medical - PN: Qual - VTE Deep Vein Thrombosis/Pulmonary Embolism Present on Admission: No
== END 2018-07-04 16:15 | disposition home health service (06) | DRG 919 ==
LOC: SSSU 14:03 → MEDSUR 16:58 → ICU 06-29 14:30 → MEDSUR 07-04 12:04
PROVIDERS: ADMIT Internal Medicine; ATTEND Internal Medicine
PROC: ERCPPAP (ICD-10-PCS; 2018-06-28 14:45)